=== PATIENT | male | born 1950 | race Caucasian/White ===

== ENCOUNTER 2017-09-27 07:51 | Day surgery (SDC) | payer OTHER, SELFPAY ==
--- NOTE | 2017-09-27 | IMM_PTH ---
PATIENT: SOPHIE ESPARZA LOC: [facility] [place] U#:[id number] AGE/SX: 67/M ROOM: RE09/27/[address]: Dr. Daniel Christian MD : 1950 BED: DIS: 09/27/2017 SPEC #: [id number] RECD: 10/03/17 10:09 STATUS: IAN ALDO #: [id number] JOSÉ MIGUEL: 09/27/17 00:[address]: Daniel Christian DEPT: IMMUNOHISTOCHEMISTRY RECD BY: Dara Najera ENTERED: 10/03/17 10:10 SP TYPE: IMMUNO OTHR DR: Dr. Gertrudis Rhoades MD Tissues: B - Nasal turbinate, NOS Procedures: p16 (initial) KI-67 (add) PHYSICIAN & INSTITUTION [place] [id number] SPECIMEN INFORMATION: Tissue Source: B - Turbinates Clinical Info: Hypertrophy of nasal turbinates Specimen Number: [id number] CPT code: 70773, 46433 METHODOLOGY: Deparaffinized sections of prefer/formalin-fixed tissue or PAP/DQ stained slides are incubated with monoclonal/polyclonal antibodies/oligonucleotide probes. Localization is made via biotin free immunoperoxidase method. Appropriate controls are performed and reacted as expected. Results on target cell population are indicated in the following table: RESULTS: ANTIBODY / CLONE RESULT P16 (E6H4) positive, focal and patchy Ki-67 (30-9) positive, low These tests were developed and their performance characteristics determined by [facility]. They may not have been cleared or approved by the U.S. Food and Drug Administration. The FDA has determined that such clearance or approval is not necessary. INTERPRETATION: Turbinates: Focal mild to moderate atypia/dysplasia. SJ:don 10/03/17 Case has been reviewed in consultation with Dr. Beard who concurs with the above diagnosis. IDC:AM
--- NOTE | 2017-09-27 | SEP_PTH ---
PATIENT: SOPHIE ESPARZA [place] [facility] [place][id number] AGE/SX: 67/M ROOM: RE09/27/[address]: Dr. Daniel Christian MD : 1950 BED: DIS: 09/27/2017 SPEC #: [id number] RECD: 09/27/17 14:19 STATUS: IAN ALDO #: [id number] JOSÉ MIGUEL: 09/27/17 00:[address]: Daniel Christian DEPT: SURGICAL PATHOLOGY RECD BY: Marcus Moreau ENTERED: 09/27/17 14:19 SP TYPE: SEPTUM OTHR DR: Dr. Gertrudis Rhoades MD Tissues: A - Nasal septum, NOS B - Nasal turbinate, NOS Procedures: Decalcification bone/plaque Surgery Specimen Level III Surgery Specimen Level IV HEADER OPERATION: Septoplasty, submucous resection inferior turbinate PRE-OP DIAGNOSIS: Deviated nasal septum, hypertrophy of nasal turbinates, incompetence of nasal valve TISSUE SUBMITTED: A ? Septal cartilage, B - Turbinates MICROSCOPIC DIAGNOSIS A. Septal cartilage: Pieces of bone and cartilage, clinically deviated nasal septum. B. Turbinates: Fragments of respiratory mucosa with squamous metaplasia and mild to moderate atypia/dysplasia. Mild chronic inflammation.. SJ:rg 10/02/17 COMMENT Immunohistochemistry (RF-151) for surrogate HPV marker (p16) supports the above diagnosis. Case has been reviewed in consultation with Dr. Beard who concurs with the above diagnosis. IDC:AM MICROSCOPIC DESCRIPTION Slides are reviewed. GROSS DESCRIPTION A - Received in fixative is one container labeled with the patient's name and designated septal cartilage. The specimen consists of multiple irregular fragments of pink-white bone and cartilage that in aggregate measure 3 x 3 x 0.2 cm. The specimen is totally submitted in one cassette after decalcification. B - Received in fixative is one container labeled with the patient's name and designated turbinates. The specimen is received in a suction bag device and consists of multiple irregular and foamy fragments of light flores soft tissue measuring in aggregate 1 x 0.7 x 0.1 cm. The specimen is totally submitted in one cassette. / AM:don 09/27/17 TC:3 CPT: 80615, 99380, 72273
--- NOTE | 2017-09-27 08:02 | EKG12_ITS ---
Test Reason : PRE OP Blood Pressure : / mmHG Vent. Rate : 064 BPM Atrial Rate : 064 BPM P-R Int : 168 ms QRS Dur : 098 ms QT Int : 408 ms P-R-T Axes : 028 -05 003 degrees QTc Int : 420 ms Normal sinus rhythm Low voltage QRS Borderline ECG Confirmed by STEVIE TATUM ([id number]), editor index FABIAN ERNANDEZ ([id number]) on 10/03/2017 12:08:53 PM Referred By: Daniel Christian Confirmed By:STEVIE TATUM
[2017-09-27 08:10] VITALS: BP 130/83; PULSE 62; RESP 16; TEMP 36.7; O2SAT 96; BMI 31.2
[2017-09-27 08:49] LABS: Anion Gap 9 (5-15); BUN 15 mg/dL (7-18); BUN/Creat Ratio 17.4 RATIO (10-20); Calcium,Total 8.5 mg/dL (8.5-10.1); Chloride 109 mmol/L (98-107); Creatinine, Serum 0.86 mg/dL (0.70-1.30); EST Glomerular Filtration Rate 94 mL/min (>60); Est Glom Filt Rate - Afr Amer 113 mL/min (>60); Estimated Creatinine Clearance 87.56 ml/min; Glucose 112 mg/dL (70-110); Potassium 4.3 mmol/L (3.5-5.1); Sodium Level 141 mmol/L (136-145)
[2017-09-27] MEDS: Lidocaine 4% 50 ML Bottle (10:19)
[2017-09-27] MEDS: Mupirocin Ointment 22gm Tube 1 APPLIC (10:54)
--- NOTE | 2017-09-27 11:00 | PCM.DC ---
You will use the following diet at home:: Regular Discharge Activity: Return to Normal Activity, May not drive while taking narcotic pain medications. Call your doctor if your incision/area has: Sudden Increased Bleeding Call your doctor if you observe: Fever of 101 or Higher, Uncontrolled pain Allergies/Adverse Reactions: Allergies No Known Allergies Allergy (Verified 09/25/17 11:35) Medications to take at Discharge Atorvastatin Calcium [Lipitor] 20 mg PO QHS 09/25/17 Primary Care Physician: Gertrudis Rhoades MD [Primary Care Provider] - Please Follow Up With: Daniel Christian MD When: 5 days
--- NOTE | 2017-09-27 11:10 | OP.PCM_ITS ---
Problem List (1) Deviated nasal septum Status: Chronic (2) Hypertrophy of nasal turbinates Status: Chronic Report of Operation Date of Procedure: 09/27/17 Pre-Operative Diagnosis: deviated nasal septum, inferior turbinate hypertrophy, nasal valve collapse Post-Operative Diagnosis: same Surgery/Procedure Performed:: septoplasty, submucous resection of bilateral inferior turbinates Description of Surgical Findings:: Marleen is a 67-year-old male presents for evaluation of chronic nasal obstruction. This is worse with inhalation. It is alleviated by use of Breathe Right strips with a positive Snyder maneuver noted in the office. Examination showed nasal septal deviation and hypertrophy of the inferior turbinates and although the primary cause of his obstruction was suspected nasal valve collapse he showed significant relief with topical topical oxymetazoline used suggesting treatment of the septal deviation and reduction inferior turbinates would provide for adequate relief and the above procedure was offered. The risks, alternatives, potential complications, and benefits were discussed at length and witnessed informed consent obtained in the office. Procedure went as follows: The patient was identified in the preoperative holding and brought to the operating room was placed under general anesthesia and intubated. When appropriate anesthesia was obtained, oxymetazoline and 4% topical lidocaine soaked pledgets were placed to decongest the nasal mucosa. Upon removal the anterior nasal septum and anterior inferior turbinates were injected with 1% lidocaine with 100,000 epinephrine for a total of 3 cc. After allowing for vasoconstriction, a hemitransfixion incision was then made in the left side of the sub-perichondrial periosteal flap and elevated along the nasal septum. There is noted to be some inferior scar tissue suggesting possible prior attempts at septoplasty but ongoing high nasal septal deviation. The cartilage was then placed transected at the bony cartilaginous junction and similar flap raised on the contralateral side. Using a Jhony forceps the superior deviated portion was then transected with the remainder of the bony deviation removed piecemeal with a Anahi forceps. This allowed for religious of midline nasal septal placement and the hemitransfixion incision was then closed with interrupted 4-0 chromic sutures followed by a 4-0 plain gut suture to approximate the mucosal flaps. This completed the septoplasty portion of the procedure. Attention was then turned to the submucous resection of the inferior turbinates. Beginning on the left side the anterior inferior turbinate was punctured with a 15 blade scalpel. Using a caudal elevator, a submucosal flap was then elevated along the length of the turbinate. Using the microdebrider the anterior bony portion and intervening soft tissue material was then removed reducing the inferior turbinate. Similar procedure then completed on the contralateral side. Medina splints coated with mupirocin ointment were then placed bilaterally and secured to the columella with a single 3-0 Prolene suture. An NG tube was then placed to decompress the stomach and the patient returned to anesthesia where he was revived and extubated without complication having tolerated the procedure well. Type of Anesthesia:: General Anesthesiologist: Paul Duarte Specimen's removed: septal and inferior turbinate tissue Drains: none Estimated Blood Loss (mL): 50 mL Fluids Replaced: 800 mL - Complications none - Admit VTE Documentation VTE Mechan Device Prophylaxis: SCD's VTE Pharm Prophylaxis ordered?: No
[2017-09-27 11:14] VITALS: BP 130/83; BP 131/87; PULSE 90; RESP 18; TEMP 36.6; O2SAT 92
[2017-09-27 11:30] VITALS: BP 130/83; BP 134/94; PULSE 79; RESP 18; O2SAT 93
[2017-09-27 11:45] VITALS: BP 130/83; BP 133/86; PULSE 74; RESP 18; O2SAT 93
[2017-09-27 12:00] VITALS: BP 130/83; BP 138/89; PULSE 78; RESP 18; TEMP 36.6; O2SAT 93
[2017-09-27 12:50] VITALS: BP 130/83
== END 2017-09-27 12:53 | disposition home or self-care (01) ==
LOC: SDC 07:52 → AC 07:54
PROVIDERS: Family Provider Family Medicine; PCP Family Medicine; Visit Provider Otolaryngology
PROC: (CPT 30520; principal; 2017-09-27 09:15)
DX: J34.2 Deviated nasal septum (principal); J34.3 Hypertrophy of nasal turbinates; M95.0 Acquired deformity of nose; E78.00 Pure hypercholesterolemia, unspecified; Z87.891 Personal history of nicotine dependence
CPT/HCPCS: 00160; 30140; 30520; 36415; 80048; 88304; 88305; 88311; 88341; 88342; 93005; J7120; J2405

== ENCOUNTER 2018-07-01 07:08 | Day surgery (SDC) | payer OTHER, SELFPAY ==
[2018-07-01] VITALS (10 sets, daily range): BP systolic 109–140; BP diastolic 75–90; PULSE 62–83; RESP 16; TEMP 36.2–37.2; O2SAT 66–97; BMI 30.9
--- NOTE | 2018-07-01 | COLBX_PTH ---
PATIENT: SOPHIE ESPARZA LOC: [place] U#:[id number] AGE/SX: 68/M ROOM: RE07/01/[address]: Dr. Raymond Horvath MD : 1950 BED: DIS: 07/01/2018 SPEC #: [id number] RECD: 07/01/18 11:10 STATUS: IAN ALDO #: [id number] JOSÉ MIGUEL: 07/01/18 00:[address]: Raymond Horvath DEPT: SURGICAL PATHOLOGY RECD BY: Marcus Moreau ENTERED: 07/01/18 11:10 SP TYPE: COLON BX OTHR DR: Dr. Danie Rivera MD Tissues: A - Ascending colon B - Rectum, NOS Procedures: Surgery Specimen Level IV HEADER OPERATION: Colonoscopy - open access (MOD) PRE-OP DIAGNOSIS: Screening TISSUE SUBMITTED: A - Polyp proximal ascending colon, B - Polyp rectum MICROSCOPIC DIAGNOSIS A. Polyp proximal ascending colon, biopsy: Tubular adenoma. Fragments of fecal material. B. Polyp rectum, biopsy: Tubular adenoma. Hyperplastic polyp. Fragments of fecal material. HERBERTH:don 07/02/18 MICROSCOPIC DESCRIPTION Slides are reviewed. GROSS DESCRIPTION A - Received in fixative is one container labeled with the patient's name and designated polyp proximal ascending. The specimen consists of multiple irregular fragments of light flores soft tissue that in aggregate measure 0.5 x 0.1 x 0.1 cm. The specimen is totally submitted in one cassette. B - Received in fixative is one container labeled with the patient's name and designated polyp rectum. The specimen consists of multiple irregular fragments of light flores soft tissue that in aggregate measure 0.8 x 0.4 x 0.2 cm. The specimen is totally submitted in one cassette. / HERBERTH:don 07/01/18 TC:1 CPT: 01587 x2
--- NOTE | 2018-07-01 08:22 | PCM.HP.STD ---
Problem List (1) Screening for intestinal cancer Status: Acute History of Present Illness Date of Admission: 07/01/18 The patient is a 68 year old M who presents via our open access program today. 5 years ago was his previous colonoscopy. Claims he had polyps then. On this occasion he has some mucus per rectum. He denies any personal history of colon cancer. No family history of colon cancer. He otherwise states that he enjoys good health. No abdominal pain. No unusual weight change. Past Medical History Past Medical History (Chronic Problems): Chronic Problems (Last Reviewed 06/23/18 @ 15:08 by Dorothy Christian) Hypertrophy of nasal turbinates (Chronic) Deviated nasal septum (Chronic) Allergies No Known Allergies Allergy (Verified 06/30/18 08:44) Home Medications: Ambulatory Orders Medication Instructions Recorded Atorvastatin Calcium [Lipitor] 20 mg PO QHS 09/25/17 Fluticasone 0.05% [Flonase Nasal 1 spray NASAL DAILY 06/30/18 Isabella] Multivitamin [Multiple Vitamins] 1 each PO DAILY 06/30/18 Terbinafine HCl 250 mg PO DAILY 06/30/18 Surgical History: Surgical History (Last Reviewed 06/23/18 @ 15:08 by Dorothy Christian) S/P surgery on nasal septum Z98.890 Smoking Status: Never smoker Tobacco Use: Non-smoker Review of Systems Constitutional: Denies: Anorexia Eyes: Denies: Blurred vision HEENT: Denies: Difficulty Swallowing Cardiovascular: Denies: Chest Pain Respiratory: Denies: Cough Gastrointestinal: Reports: - - Mucus per rectum. Denies: Abdominal Pain Genitourinary: Denies: Dysuria VTE Information - Inpt Only VTE Present on Admission: No Patient Problems: Active and Suspected Problems (Last Reviewed 06/23/18 @ 15:08 by Dorothy Christian) Screening for intestinal cancer (Acute) - Physical Exam General: Alert, Oriented x3, Cooperative, No apparent distress HEENT: Atraumatic Oral: Moist Mucosa Lungs: Clear to auscultation Cardiovascular: Regular rate, Regular Rhythm Abdomen: Bowel Sounds Present, Soft, Non Tender, Non-Distended Extremities: No Calf Tenderness Musculoskeletal: No Tenderness to Palpation of Joints or Extremities Neurological: Cranial nerves II-XII grossly intact Psych/Mental Status: Normal Affect Vital Signs Temp Pulse Resp BP Pulse Ox 97.7 F L 62 16 140/89 H 95 07/01/18 07:49 07/01/18 07:49 07/01/18 07:49 07/01/18 07:49 07/01/18 07:49 Oxygen Delivery Method Room Air Weight: 215 lb 13.321 oz Body Mass Index (BMI) 30.9 Assessment/Plan All Active Problems (Last Reviewed 06/23/18 @ 15:08 by Dorothy Christian) Screening for intestinal cancer (Acute) Acute left-sided low back pain (Acute) Segmental and somatic dysfunction of thoracic region (Acute) Segmental and somatic dysfunction of cervical region (Acute) Segmental and somatic dysfunction of lumbar region (Acute) Colonoscopy with possible biopsy or polypectomy secondary to personal history of colon polyps. Patient is aware the technique, benefits, risks, alternatives. He has had an opportunity to ask and have questions answered. He is proceeded with the MiraLAX bowel prep. We will proceed as noted. Raymond Horvath M.D., F.A.C.S.
--- NOTE | 2018-07-01 09:01 | OP.ENDO_ITS ---
Patient Name: Marleen Roman Procedure Date: 07/01/2018 8:25 AM Date of : 1950 Age: 68 Procedure: Colonoscopy Indications: High risk colon cancer surveillance: Personal history of colonic polyps Providers: Raymond Horvath MD Referring MD: Raymond Horvath MD Medicines: Midazolam 4 mg IV, Meperidine 100 mg IV Patient Profile: Last Colonoscopy: 5 years ago. Complications: No immediate complications. Procedure: Pre-Anesthesia Assessment: - Prior to the procedure, a History and Physical was performed, and patient medications and allergies were reviewed. The patient's tolerance of previous anesthesia was also reviewed. The risks and benefits of the procedure and the sedation options and risks were discussed with the patient. All questions were answered, and informed consent was obtained. Prior Anticoagulants: The patient has taken no previous anticoagulant or antiplatelet agents. ASA Grade Assessment: II - A patient with mild systemic disease. After reviewing the risks and benefits, the patient was deemed in satisfactory condition to undergo the procedure. After I obtained informed consent, the scope was passed under direct vision. Throughout the procedure, the patient's blood pressure, pulse, and oxygen saturations were monitored continuously. The pediatric colonoscope was introduced through the anus and advanced to the cecum, identified by appendiceal orifice and ileocecal valve. The colonoscopy was performed without difficulty. The patient tolerated the procedure well. The quality of the bowel preparation was good. The ileocecal valve was photographed. Moderate Sedation: Moderate (conscious) sedation was personally administered by the endoscopist. The following parameters were monitored: oxygen saturation, heart rate, blood pressure, and response to care. Total physician intraservice time was 15 minutes. Scope In: 8:38:40 AM Scope Withdrawal Time 0 hours 12 minutes 47 seconds Scope Out: 8:55:48 AM Total Procedure Duration Time 0 hours 17 minutes 8 seconds Findings: The digital rectal exam findings include non-thrombosed external hemorrhoids, non-thrombosed internal hemorrhoids and internal hemorrhoids that prolapse with straining, but spontaneously regress to the resting position (Grade II). Pertinent negatives include normal prostate (size, shape, and consistency). A 6 mm polyp was found in the proximal ascending colon. The polyp was sessile. The polyp was removed with a cold snare. Resection and retrieval were complete. A 5 mm polyp was found in the rectum. The polyp was sessile. The polyp was removed with a cold snare. Resection and retrieval were complete. Multiple diverticula were found in the sigmoid colon and descending colon. Impression: - Non-thrombosed external hemorrhoids, non-thrombosed internal hemorrhoids and internal hemorrhoids that prolapse with straining, but spontaneously regress to the resting position (Grade II) found on digital rectal exam. Posterior anal tag,soft. Mild escoriation anus. No active bleeding. - One 6 mm polyp in the proximal ascending colon, removed with a cold snare. Resected and retrieved. - One 5 mm polyp in the rectum, removed with a cold snare. Resected and retrieved. - Diverticulosis in the sigmoid colon and in the descending colon. Recommendation: - Discharge patient to home. - Resume previous diet. - Continue present medications. - Repeat colonoscopy in 5 years for surveillance. - Return to my office in 1 week. Procedure Code(s): --- Professional --- 69104, Colonoscopy, flexible; with removal of tumor(s), polyp(s), or other lesion(s) by snare technique 57293, 59, Moderate sedation services provided by the same physician or other qualified health career development associate performing the diagnostic or therapeutic service that the sedation supports, requiring the presence of an independent trained observer to assist in the monitoring of the patient's level of consciousness and physiological status; initial 15 minutes of intraservice time, patient age 5 years or older Diagnosis Code(s): --- Professional --- Z86.010, Personal history of colonic polyps K64.1, Second degree hemorrhoids K64.4, Residual hemorrhoidal skin tags D12.2, Benign neoplasm of ascending colon K62.1, Rectal polyp K57.30, Diverticulosis of large intestine without perforation or abscess without bleeding CPT copyright 2017 [employer]. All rights reserved. The codes documented in this report are preliminary and upon senior business development manager review may be revised to meet current compliance requirements. Raymond Horvath MD 07/01/2018 9:01:46 AM This report has been signed electronically. Number of Addenda: 0 Note Initiated On: 07/01/2018 8:25 AM
== END 2018-07-01 10:16 | disposition home or self-care (01) ==
LOC: EN 07:09 → AC 07:09
PROVIDERS: Family Provider Family Medicine; PCP Family Medicine; Referring Provider Surgery; Visit Provider Surgery
PROC: 0DJD8ZZ Inspection of Lower Intestinal Tract, Via Natural or Artificial Opening Endoscopic (ICD-10-PCS; CPT 45378; principal; 2018-07-01 08:10)
DX: Z12.11 Encounter for screening for malignant neoplasm of colon (principal); D12.2 Benign neoplasm of ascending colon; D12.8 Benign neoplasm of rectum; K64.1 Second degree hemorrhoids; K57.30 Diverticulosis of large intestine without perforation or abscess without bleeding; K64.4 Residual hemorrhoidal skin tags; Z86.010 Personal history of colon polyps
CPT/HCPCS: 45385; 88305; 99152; 99153; J7120

== ENCOUNTER 2018-07-30 13:30 | Outpatient (RCR) | payer OTHER, SELFPAY ==
--- NOTE | 2018-05-29 13:18 | MASS.EVAL_ITS ---
Massage Therapy Evaluation: Initial Evaluation Date: 05/27/2018 SUBJECTIVE: Marleen is a 68 year old male who was referred to the [facility] facility for a massotherapy evaluation by Dr. Rivera with the diagnosis of low back pain. Marleen presents today with the symptoms of tension and pain in his mid-low back. He also complains of neck tension. Marleen reports having a medical history chronic neck and upper back and lower back tension with a history of pain in his mid-low back back. He reports having the increased low back symptoms for a few weeks and that he feels some improvement with stretching activity modification. OBJECTIVE: Upon observation Marleen has poor posture in sitting and standing. After examination and palpation I found Marleen to have very high muscle tension with tenderness and myofascial restrictions in his sub occipitals, levator scapulae, trapezius, rhomboids, scalenes, and thoracic paraspinals. His QL?s, hips including glute medius and minimus, hamstrings all were very tight with fascial restrictions, tender points and trigger points. The first treatment consisted of a one hour massage to his full body with myofascial release, muscle stripping, trigger point compression techniques, and cervical manual traction. ASSESSMENT: I feel that Marleen is a good candidate for massotherapy at this time. He had a favorable response to the first treatment with reduction in his muscle aches, pain and tension. He also had improvement in his cervical flexibility and low back flexibility. PLAN: The plan of care was reviewed with the patient. The patient is to be seen on as needed basis for a total of ten sessions with the recommendation of once every two weeks for a one hour treatment.
--- NOTE | 2018-08-21 12:56 | DS.PCM_ITS ---
Massage Therapy Discharge Summary: Initial Evaluation: 05/27/18 Diagnosis: Low back pain No. of Visits: 3 of 10 Date of last visit: 07/30/2018 This patient is being discharged from our care at the [facility]. Thank you, Apoorva Glover LMT
== END 2018-07-30 19:00 | disposition home or self-care (01) ==
LOC: MASS 13:30
PROVIDERS: Family Provider Family Medicine; PCP Family Medicine; Visit Provider Family Medicine
DX: M54.5 Low back pain (principal)
CPT/HCPCS: 97124

== ENCOUNTER → 2018-09-10 14:02 | Outpatient (CLI) | payer MEDICARE, SELFPAY ==
[2018-07-30 14:38] VITALS: BMI 31.2
[2018-09-10 16:28] LABS: AST(SGOT) 29 U/L (15-37); Alanine Aminotransfer ALT/SGPT 59 U/L (16-61); Alkaline Phosphatase 82 U/L (45-117); Bilirubin, Direct 0.21 mg/dL (0.00-0.30); Globulin 3.1 g/dL (2.2-4.2); Protein, Total 7.1 g/dL (6.4-8.2)
== END ==
PROVIDERS: Family Provider Family Medicine; PCP Family Medicine; Visit Provider Family Medicine
DX: E78.5 Hyperlipidemia, unspecified (principal)
CPT/HCPCS: 36415; 80076

== ENCOUNTER → 2019-01-05 15:37 | Outpatient (CLI) | payer MEDICARE, SELFPAY ==
[2018-07-30 14:38] VITALS: BMI 31.2
--- NOTE | 2019-01-05 15:48 | CT_ITS ---
We are attempting to reach Gertrudis Rhoades MD to discuss findings. An addendum with communication details will be sent when the communication is complete. STUDY: CT SOFT TISSUE NECK WITH CONTRAST REASON FOR EXAM: Male, 68 years old. Right neck mass RADIATION DOSAGE (If Supplied By Facility): CTDIvol = ( ) mGy, DLP = ( ) mGycm TECHNIQUE: The patient was scanned in a multi-detector CT scanner. High resolution transaxial imaging was performed following intravenous administration of 75 IV Isovue 370. Sagittal and coronal images were reconstructed. Individualized dose optimization techniques were used for this CT. COMPARISON: None. FINDINGS: SUPRAHYOID HEAD AND NECK PEST CONTROLLER SPACE (INCLUDING SUPRAZYGOMATIC PORTION): Normal with no evidence of an accessory parotid lobe. No calcification in parotid duct. PARAPHARYNGEAL SPACE: Normal and symmetric. No evidence of asymmetric pterygoid plexus. RETROPHARYNGEAL SPACE: Normal with no enlarged nodes of Rouvier laterally CAROTID SPACE: Normal PERIVERTEBRAL SPACE: The prevertebral and paraspinal components are normal. PAROTID SPACE: Negative PHARYNGEAL MUCOSAL SPACE: The nasopharyngeal and oropharyngeal spaces including the tongue base are normal with no tonsillitis, adenoidal hypertrophy or any neoplastic processes. ORAL CAVITY : The mucosal surfaces including the anterior two thirds of the tongue and the submandibular and sublingual spaces are normal INFRAHYOID HEAD AND NECK: VISCERAL SPACE: The trachea, esophagus, larynx and hypopharynx are normal. A 1.2 cm area of low attenuation in the right lobe of the thyroid gland. THE CAROTID, RETROPHARYNGEAL, PERIVERTEBRAL and POSTERIOR CERVICAL SPACES (Containing The Spinal Accessory Lymph Nodes): Normal . ORBITS AND PARANASAL SINUSES: Negative CERVICAL LYMPH NODES: No left-sided neck adenopathy. Right sided neck adenopathy: Level 2A: 3.6 x 1.8 cm. Level 2B: 3.3 x 2.3 cm. Level 3:: 2.9 x 1.8 cm. Level 5A: 1.6 x 1.2 cm. Level 5B: 2.2 x [address]/Soft Tissue Neck WITH Contrast IMPRESSION: No left-sided cervical adenopathy. Multiple nonnecrotic enlarged lymph nodes matted together involving levels 2 and 3 and 5. A 1.2 cm area of low attenuation is in the right lobe of the thyroid gland. Follow-up with ultrasound suggested Electronically Signed: Paulo No MD at 1:29 EDT Tel , Service support ,
[2019-01-05 16:01] LABS: CREATININE FINGERSTICK 1.2 mg/dL (0.70-1.30); EGFR FINGERSTICK > 60.0000 mL/min (>60)
== END ==
PROVIDERS: Family Provider Family Medicine; PCP Family Medicine; Referring Provider Family Medicine; Visit Provider Family Medicine
DX: R22.1 Localized swelling, mass and lump, neck (principal)
CPT/HCPCS: 70491; Q9967

== ENCOUNTER 2019-01-16 12:35 | Day surgery (SDC) | payer MEDICARE, SELFPAY ==
[2018-07-30 14:38] VITALS: BMI 31.2
--- NOTE | 2019-01-16 | IMM_PTH ---
PATIENT: SOPHIE ESPARZA [place] [facility] [facility] [place][id number] AGE/SX: 68/M ROOM: RE01/16/[address]: Dr. Daniel Christian MD : 1950 BED: DIS: 01/16/2019 SPEC #: [id number] RECD: 01/20/19 13:18 STATUS: IAN REQ #: [id number] JOSÉ MIGUEL: 01/16/19 00:[address]: Daniel Christian DEPT: IMMUNOHISTOCHEMISTRY RECD BY: Dara Najera ENTERED: 01/20/19 13:21 SP TYPE: IMMUNO OTHR DR: Dr. Danie Rivera MD Tissues: Lymph node of neck, NOS Procedures: BCL-2 (add) BCL-6 (add) CD10 (add) CD138 (add) CD15 (add) CD20 (add) CD23 (add) CD3 (add) CD30 (add) CD43 (add) CD45 (add) CD5 (add) CD79A (add) CYCLIN (add) MUM1 (add) C-MYC (add) Pankeratin (initial) PHYSICIAN & [place] [id number] SPECIMEN INFORMATION: Tissue Source: Right cervical lymph node, biopsy Clinical Info: Cervical lymphadenopathy Specimen Number: [id number] #4 CPT code: 77900, 21052 x16 METHODOLOGY: Deparaffinized sections of prefer/formalin-fixed tissue or PAP/DQ stained slides are incubated with monoclonal/polyclonal antibodies/oligonucleotide probes. Localization is made via biotin free immunoperoxidase method. Appropriate controls are performed and reacted as expected. Results on target cell population are indicated in the following table: RESULTS: ANTIBODY / CLONE RESULT Block 4 AE1-3 (AE1/AE3/PCK26) negative CD3 (PS1) negative CD5 (SP10) negative CD10 (56C6) positive, focal RS cells CD15 (MMA) positive CD20 (L26) negative CD23 (1B12) negative CD30 (Phillip-H2) positive CD43 (L60) negative CD45 (RP2/18) negative CD79a (11E3) negative CD138 (B-A38) negative BCL-2 (bcl-2/100/D5) positive BCL-6 (YG958X/A8) negative Cyclin D1/BCL-1 (SP4) negative MUM1 (MRQ-43) positive, RS cells C-MYC (Y69) negative These tests were developed and their performance characteristics determined by [facility]. They may not have been cleared or approved by the U.S. Food and Drug Administration. The FDA has determined that such clearance or approval is not necessary. INTERPRETATION: Right cervical lymph node, biopsy: Hodgkin lymphoma, nodular sclerosing subtype. AM:don 01/29/19 Case has been reviewed in consultation with Dr. Mendieta who concurs with the above diagnosis. IDC:CE
--- NOTE | 2019-01-16 | AXNB_PTH ---
PATIENT: SOPHIE ESPARZA [place] [facility] [place][id number] AGE/SX: 68/M ROOM: RE01/16/[address]: Dr. Daniel Christian MD : 1950 BED: DIS: 01/16/2019 SPEC #: [id number] RECD: 01/16/19 15:22 STATUS: IAN ALDO #: [id number] JOSÉ MIGUEL: 01/16/19 00:[address]: Daniel Christian DEPT: SURGICAL PATHOLOGY RECD BY: Dara Najera ENTERED: 01/16/19 16:11 SP TYPE: AX NODE BX OTHR DR: Dr. Danie Rivera MD Tissues: A - Lymph node of neck, NOS Procedures: Frozen Section (charge) Surgery Specimen Level IV HEADER OPERATION: Radical neck biopsy/excision lymph nodes - open deep cervical nodes - right PRE-OP DIAGNOSIS: Cervical lymphadenopathy; dysphagia TISSUE SUBMITTED: Right cervical lymph node tissue for FS at 1519 FROZEN SECTION DIAGNOSIS Right cervical lymph node, biopsy: Consistent with lymphoproliferative disorder. AM:don 01/16/19 MICROSCOPIC DIAGNOSIS Right cervical lymph node, excisional biopsy: Consistent with Hodgkin's lymphoma, nodular sclerosing sub type.. See comment. AM:don 01/20/19 COMMENT Immunohistochemistry ([id number]) and flow cytometry analysis performed at [facility] supports the above diagnosis. This case is reviewed in consultation by of Frolik who concurs with the diagnosis. Complete report viewable in EMR. Case has been reviewed in consultation with Dr. Mendieta who concurs with the above diagnosis. IDC:CE MICROSCOPIC DESCRIPTION Slides are reviewed. GROSS DESCRIPTION Received fresh for frozen section consultation labeled with the patient's name is a specimen designated right cervical lymph node tissue. The specimen consists of an ovoid fragment of light flores soft tissue measuring 4 x 2.5 x 2.2 cm. Willow Worker sections are submitted for flow cytometric analysis. Additional client relations representative sections are submitted in four cassettes. / AM:don 01/19/19 TC:0 CPT: 65426, 83395
--- NOTE | 2019-01-16 12:49 | EKG12_ITS ---
Test Reason : PREOP Blood Pressure : / mmHG Vent. Rate : 076 BPM Atrial Rate : 076 BPM P-R Int : 158 ms QRS Dur : 098 ms QT Int : 404 ms P-R-T Axes : 021 -11 -04 degrees QTc Int : 454 ms Sinus rhythm with occasional Premature ventricular complexes and Fusion complexes Otherwise normal ECG When compared with ECG of 27-SEP-2017 08:12, Fusion complexes are now Present Premature ventricular complexes are now Present Confirmed by NIKKI DE LA TORRE, GARRET ([id number]), assistant production editor JACOBO GONCALVES ([id number]) on 01/20/2019 11:30:10 AM Referred By: Daniel Christian Confirmed By:GARRET JORDAN MD
[2019-01-16 13:08] VITALS: BP 125/87; PULSE 74; RESP 18; TEMP 37.1; O2SAT 95; BMI 29.5
[2019-01-16 13:33] LABS: Anion Gap 7 (5-15); BUN 16 mg/dL (7-18); BUN/Creat Ratio 17.1 RATIO (10-20); Calcium,Total 8.7 mg/dL (8.5-10.1); Chloride 106 mmol/L (98-107); Creatinine, Serum 0.93 mg/dL (0.70-1.30); EST Glomerular Filtration Rate 85 mL/min (>60); Est Glom Filt Rate - Afr Amer 103 mL/min (>60); Estimated Creatinine Clearance 79.84 ml/min; Glucose 95 mg/dL (74-106); Sodium Level 138 mmol/L (136-145)
--- NOTE | 2019-01-16 15:25 | PCM.OPRPT ---
Problem List (1) Anterior cervical adenopathy Status: Acute Report of Operation Date of Procedure: 01/16/19 Pre-Operative Diagnosis: Right cervical lymphadenopathy Post-Operative Diagnosis: Same Surgery/Procedure Performed:: Deep cervical lymph node biopsy right neck Description of Surgical Findings:: Gabriela is a 68-year-old male presents valuation of acute onset of diffuse massive right-sided lymphadenopathy with both anterior and posterior nodes noted. Examination showed no obvious site of head neck malignancy to suggest metastatic disease and given consideration of this presentation because of the lymphoma and open biopsy was advised for further evaluation. The risks, alternatives, potential complications, and benefits were discussed at length and any questions answered to the patient and/or caregiver's satisfaction. Witnessed informed consent was obtained in the office, and the patient and/or caregiver was agreeable to proceed. Procedure went as follows: The patient was identified in the preoperative holding and brought to the operating room was placed under general anesthesia intubated. When appropriate anesthesia obtained, the right neck was then prepped and draped in usual sterile fashion. The planned skin incision was then injected with 1% lidocaine with 100,000 epinephrine for a total of 3 cc. Using a 15 blade scalpel, an incision was then made just anterior to the sternocleidomastoid to finger breaths below the angle of the mandible through the skin and subcutaneous tissues. The platysma was then transected. Blunt dissection was then carried out along the jugular lymph node chain were massive lymphadenopathy was encountered and a account maintenance representative 3 x 2 x 2 cm lymph node was then removed as specimen. This was then sent for pathologic evaluation. The wound was then irrigated saline solution and closed deeply with interrupted 3-0 Vicryl sutures to close the space. The platysma and subcutaneous tissues were then reapproximated similarly. Finally a running 5-0 Monocryl in a running baseball suture was then applied to the skin. The patient was then returned to anesthesia having tolerated the procedure well without complication. Type of Anesthesia:: General Anesthesiologist: Nic Barillas Special Medications: none Specimen's removed: right deep cervical lymph node Drains: none Estimated Blood Loss (mL): 0 mL Fluids Replaced: 1000 mL Grafts/Implants Used: none - Complications none - Admit VTE Documentation VTE Present on Admission: No VTE Mechan Device Prophylaxis: SCD's VTE Pharm Prophylaxis ordered?: No
[2019-01-16] MEDS: Bacitracin 500 UNITS/GM PACKET (15:29)
--- NOTE | 2019-01-16 15:33 | DCINST_ITS ---
- Discharge Diagnoses Current Active Problems: Current Active and Chronic Problems (Last Reviewed 06/23/18 @ 15:08 by Dorothy Christian) Anterior cervical adenopathy (Acute) You will use the following diet at home:: Regular Discharge Activity: Return to Normal Activity Call your doctor if your incision/area has: Increased Pain/ Swelling, Foul Smelling Discharge Call your doctor if you observe: Fever of 101 or Higher, Uncontrolled pain Allergies/Adverse Reactions: Allergies No Known Allergies Allergy (Verified 01/15/19 13:59) Medications to take at Discharge Fluticasone 0.05% [Flonase Nasal [place]] 1 spray NASAL DAILY PRN 06/30/18 Multivitamin [Multiple Vitamins] 1 each PO DAILY 06/30/18 Primary Care Physician: Huy Rivera MD [Primary Care Provider] - Test Results: Test results from this visit will be discussed in further detail at your follow- up appointment, if applicable. Please Follow Up With: Daniel Christian MD When: 2 weeks
[2019-01-16 15:55] VITALS: BP 125/87; BP 145/93; PULSE 93; RESP 18; TEMP 37; O2SAT 92
[2019-01-16 16:00] VITALS: BP 125/87; BP 145/91; PULSE 87; RESP 18; O2SAT 92
[2019-01-16 16:15] VITALS: BP 125/87; BP 143/95; PULSE 80; RESP 18; O2SAT 92
[2019-01-16 16:19] VITALS: BP 125/87; BP 145/84; PULSE 86; RESP 16; TEMP 36.6; O2SAT 92
[2019-01-16] MEDS: Acetaminophen 325 MG Tablet 650 MG PO (16:37)
[2019-01-16 16:38] VITALS: BP 125/87; BP 157/94; PULSE 84; RESP 18; TEMP 36.7
== END 2019-01-16 16:52 | disposition home or self-care (01) ==
LOC: SDC 12:37 → AC 12:44
PROVIDERS: Family Provider Family Medicine; PCP Family Medicine; Referring Provider Otolaryngology; Visit Provider Otolaryngology
PROC: 07T10ZZ Resection of Right Neck Lymphatic, Open Approach (ICD-10-PCS; CPT 38724; principal; 2019-01-16 13:50)
DX: C81.91 Hodgkin lymphoma, unspecified, lymph nodes of head, face, and neck (principal); R13.10 Dysphagia, unspecified; R53.81 Other malaise; E78.00 Pure hypercholesterolemia, unspecified; Z87.891 Personal history of nicotine dependence
CPT/HCPCS: 00320; 38510; 36415; 80048; 88305; 88331; 88341; 88342; 93005; J7120; J2405

== ENCOUNTER → 2019-02-03 13:17 | Outpatient (CLI) | payer MEDICARE, SELFPAY ==
[2019-01-29 12:01] VITALS: BMI 30.3
[2019-02-02 15:23] VITALS: BMI 30.3
--- NOTE | 2019-02-03 14:47 | ECHODONC_ITS ---
Reason For Study: PRECHEMO STUDY Procedure This was a 2D Doppler, Color Flow transthoracic echocardiogram. Myocardial strain analysis was performed in this exam to aid in the assessment of cardiac function. The study was technically difficult. Exam performed in department. Left Ventricle Normal LV size. Apical false tendon noted. Left ventricular systolic function is normal. The estimated ejection fraction is 65 %. The global longitudinal strain = -22 % (normal). Diastolic function is indeterminate. No regional wall motion abnormalities noted. Right Ventricle Normal RV size. Normal systolic function. Atria The left atrium is mildly enlarged. Normal right atrium. No doppler evidence for ASD. Mitral Valve There is no mitral annular calcification. Mild focal mitral valve calcification of the anterior leaflet. Mild (1+) mitral valve insufficiency. Tricuspid Valve Normal tricuspid valve. Mild tricuspid valve insufficiency. Right ventricular systolic pressure estimated to be 36 mmHg. Aortic Valve Trisinus/trileaflet aortic valve. Normal aortic valve. Pulmonic Valve The pulmonic valve is not well visualized. Mild (1+) pulmonic valve insufficiency. Great Vessels Normal sized aortic root. Pericardium/Pleural No pericardial effusion. MMode/2D Measurements & Calculations LVIDd: 5.0 cm IVSd: 0.95 cm Ao root diam: 3.4 cm LVIDs: 2.9 cm LVPWd: 1.0 cm RVDd: 4.2 cm FS: 43.3 % LAV(MOD-bp): 68.3 ml LA A4 area: 23.6 cm2 LA dimension(2D): 5.3 cm LAV(MOD-bp) Indexed: 31.8 ml/m2 LAV(MOD-sp2): 60.0 ml LAV(MOD-sp4): 76.4 ml RA A4 area: 18.5 cm2 Time Measurements MV dec time: 0.19 sec Doppler Measurements & Calculations MV E max lukas: 65.2 cm/sec Lat Peak E' Lukas: 10.7 cm/sec Med Peak E' Lukas: 6.0 cm/sec MV A max lukas: 81.2 cm/sec E/E' lat: 6.1 E/E' med: 10.8 MV E/A: 0.80 Ao V2 max: 165.5 cm/sec LV V1 max: 114.6 cm/sec PA V2 max: 119.0 cm/sec Ao max P.0 mmHg LV V1 max P.3 mmHg PI end-d lukas: 133.4 cm/sec TR max lukas: 286.0 cm/sec TR max P.8 mmHg Interpretation Summary Left ventricular systolic function is normal. The estimated ejection fraction is 65 %. The global longitudinal strain = -22 % (normal). Apical false tendon noted. The left atrium is mildly enlarged. Mild focal mitral valve calcification of the anterior leaflet. Mild (1+) mitral valve insufficiency. Mild tricuspid valve insufficiency. Mild (1+) pulmonic valve insufficiency. Right ventricular systolic pressure estimated to be 36 mmHg. Diastolic function is indeterminate. Ordering Physician: Bassem Powell Referring Physician: Danie Rivera Performed By: Nupur Meza, LETHA, RVT
== END ==
PROVIDERS: Family Provider Family Medicine; PCP Family Medicine; Referring Provider Internal Medicine Hematology & Oncology; Visit Provider Internal Medicine Hematology & Oncology
DX: Z01.810 Encounter for preprocedural cardiovascular examination (principal); Z01.818 Encounter for other preprocedural examination; C81.90 Hodgkin lymphoma, unspecified, unspecified site; M99.01 Segmental and somatic dysfunction of cervical region; M99.02 Segmental and somatic dysfunction of thoracic region; M99.03 Segmental and somatic dysfunction of lumbar region
CPT/HCPCS: 0399T; 93306

== ENCOUNTER 2019-02-04 06:42 | Day surgery (SDC) | payer MEDICARE, SELFPAY ==
[2019-01-29 12:01] VITALS: BMI 30.3
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
[2019-02-02 15:23] VITALS: BMI 30.3
--- NOTE | 2019-02-03 10:00 | RAD_ITS ---
STUDY: X-RAY - ORBITS REASON FOR EXAM: Male, 68 years old. This study is being performed as a clearance examination for exclusion of orbital metal, prior to the performance of an MRI examination. TECHNIQUE: 2 view(s) of the orbits were obtained. COMPARISON: None. FINDINGS: Normal bilateral orbits without a metallic orbital foreign body. Normal visualized facial bones. Normal paranasal sinuses. The soft tissue structures are unremarkable. RAD/Orbits for Foreign Body IMPRESSION: No demonstrated metallic orbital foreign body. The patient is cleared for an MRI examination. Electronically Signed: Hudson Garibay, at 13:53 EDT , Service support ,
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
--- NOTE | 2019-02-04 06:43 | MRI_ITS ---
STUDY: MRI BRAIN WITH AND WITHOUT CONTRAST REASON FOR EXAM: Male, 68 years old. Headaches. Lymphoma. TECHNIQUE: Standardized multiplanar fat and water weighted pulse sequences were obtained. 19 IV Dotarem was administered for the contrast portion of the examination. COMPARISON: CT neck 01/05/2019. FINDINGS: Normal size of the ventricles and extra-axial spaces for the patient's age. Normal white matter tracts of the supratentorial brain. Normal bilateral basal ganglia. Normal thalami. There is no extra-axial fluid accumulation. Normal flow voids within the major intracranial circulation suggesting patency by spin echo criteria. Normal venous enhancement. There is no enhancing intra-axial or extra-axial abnormality. Normal sella turcica, pituitary gland, infundibular stalk, optic chiasm and hypothalamus. Normal tectal plate and pineal gland. Normal midbrain, kong and medulla. Normal cerebellum. Normal basal cisterns. Normal bilateral temporal bones. Normal bilateral internal auditory canals. No demonstrated orbital abnormality, within the constraints of a routine brain study. Normal visualized paranasal sinuses. Normal calvarium and skull base. Normal visualized soft tissue structures. Normal visualized upper cervical spine. Partially visualized is restricted diffusion associated with the bulky right level 2 cervical adenopathy consistent with known lymphoma. MRI/Brain W/WO Contrast IMPRESSION: Normal unenhanced and enhanced MRI of the brain. Partially visualized is restricted diffusion associated with the bulky right level 2 cervical adenopathy consistent with known lymphoma. Electronically Signed: Wilbur Weldon, at 12:26 EDT Tel , Service support ,
[2019-02-04 12:39] VITALS: BP 113/73; PULSE 62; RESP 16; TEMP 36.9; O2SAT 96; BMI 29.9
[2019-02-04] MEDS: Cefazolin 2 GM in 0.9% Normal Saline 100 ML IV (14:33)
--- NOTE | 2019-02-04 14:43 | RAD_ITS ---
STUDY: X-RAY CHEST REASON FOR EXAM: Male, 68 years old. Port placement TECHNIQUE: Single AP portable view of the chest. COMPARISON: None. FINDINGS: There is a left-sided Hsdwsd-t-Vdme with its tip overlying the cavoatrial junction. There are low lung volumes. The lungs are clear and expanded. There is no demonstrated pleural abnormality. Evaluation of the cardiac silhouette is limited on this view. Normal mediastinum and sebas. Normal visualized pulmonary arteries. Normal visualized aortic arch and descending thoracic aorta. Normal visualized thoracic spine. Normal visualized ribs, clavicles, and shoulders. There is no demonstrated abnormality of the visualized soft tissue structures of the upper abdomen. RAD/CXR for Line Placement IMPRESSION: Left-sided Uanwcm-s-Dpaf with its tip overlying the cavoatrial junction. No pneumothorax. Electronically Signed: Wilbur Weldon, at 16:17 EDT Tel , Service support ,
--- NOTE | 2019-02-04 14:46 | DCINST_ITS ---
Discharge Diet: No Restrictions - Pain medication may cause nausea. You should typically eat light foods as you take your pain medication. Discharge Activity: Return to Normal Activity, May Shower - Leave the bandage on for 2-3 days. When you remove the bandage, leave the steri-strips intact until they fall off. Additional Dressing/Incision Instructions:: Leave the bandage on for 2-3 days. When you remove the bandage, leave the steri-strips intact until they fall off. Allergies/Adverse Reactions: Allergies No Known Allergies Allergy (Verified 02/03/19 09:37) Medications to take at Discharge Fluticasone 0.05% [Flonase Nasal [place]] 1 spray NASAL DAILY PRN 06/30/18 Multivitamin [Multiple Vitamins] 1 ea PO DAILY 06/30/18 Ibuprofen [Advil] 400 mg PO UD PRN 01/29/19 Hydrocodone Bitart/Apap 5-325 [[place] 5MG-325MG] 1 tablet PO Q4H PRN PRN 2 Days #5 tablet 02/04/19 The following prescriptions were given: Hydrocodone Bitart/Apap 5-325 [[place] 5MG-325MG] 1 tablet PO Q4H PRN PRN 2 Days #5 tablet PRN Reason: Pain Primary Care Physician: Huy Rivera MD [Primary Care Provider] - Test Results: Test results from this visit will be discussed in further detail at your follow- up appointment, if applicable. Please Follow Up With: Raymond Horvath MD - [phone] When: Please contact the office if you have any difficulties
[2019-02-04] MEDS: Bupivacaine Mpf 0.5% 30 ML VIAL (14:53)
--- NOTE | 2019-02-04 15:32 | OP.PCM_ITS ---
Problem List (1) Hodgkins lymphoma Status: Acute Qualifiers: Hodgkin lymphoma type: unspecified type Report of Operation Date of Procedure: 02/04/19 Pre-Operative Diagnosis: Hodgkin's lymphoma Post-Operative Diagnosis: Same Surgery/Procedure Performed:: Left internal jugular 6 [place] power port placement. Reference #[id number]. Lot number [id number] expiry date 01/31/2020 Description of Surgical Findings:: Timeout and informed consent was obtained. 68-year-old gentleman was taken out from placement table underwent monitored anesthesia care. Ancef 2 g given intravenous preoperatively. The left neck and chest were sterilely prepped draped. Under ultrasound guidance the left internal jugular vein was identified 1% lidocaine mixed 50-50 with 0.5% Marcaine was used as a local anesthetic. A total of 16 cc was used. Under ultrasound guidance local was instilled. Micropuncture needle was inserted. Micropuncture wire inserted. Local was then instilled down upon the chest wall. Mid clavicular line second intercostal space transverse incision was created sharp and blunt dissection was used to create a subcutaneous port. Hemostasis obtained electrocautery. The tubing was tunneled from the chest to the neck site. Then sheath dilator was placed over the micropuncture wire the dilator wire removed and the J-wire was advanced but it got hung up at the SVC atrial junction. So then I had exchanged out for an 035 angled Glidewire with manipulation was able to get that to go down into the right heart. I then put the sheath dilator over that. I remove the dilator and the wire. I can advance the catheter through the sheath but the catheter would not take the correct position so I then placed the 035 angled Glidewire through the catheter in the mid mutation was able to advance the Glidewire and then eventually the guide catheter over the wire into the right atrium. Fluoroscopy help me confirm positioning. I then aspirated it aspirated easily. I amputated it to length. I connected to the port and secured it with a port attachment device. The port was placed in the pocket and secured there with 2-0 silk. The port site was closed with interrupted 3-0 Vicryl subdermal stitches. The neck was closed with interrupted 5-0 Vicryl. Steri-Strips Telfa and OpSite dressings applied. Sponge and instrument and needle counts were reported the surgeon be correct. Blood loss was minimal. He tolerated the procedure well and was taken to the recovery area in satisfactory condition without apparent complication. Specimens none. Drains none. Blood loss minimal. Raymond Horvath M.D., F.A.C.S. Type of Anesthesia:: Local MAC Anesthesiologist: Shakeel Mejia
[2019-02-04 15:38] VITALS: BP 113/73; BP 118/80; PULSE 66; RESP 16; TEMP 36.2; O2SAT 95
[2019-02-04 15:43] VITALS: BP 113/73; BP 128/82; PULSE 66; RESP 16; O2SAT 95
[2019-02-04 15:48] VITALS: BP 113/73; BP 121/93; PULSE 62; RESP 16; O2SAT 92
[2019-02-04 15:53] VITALS: BP 113/73; BP 130/80; PULSE 70; RESP 16; TEMP 36.2; O2SAT 97
[2019-02-04 16:50] VITALS: BP 113/73
== END 2019-02-04 16:55 | disposition home or self-care (01) ==
LOC: SDC 08:32 → AC 11:58
PROVIDERS: Family Provider Family Medicine; PCP Family Medicine; Referring Provider Surgery; Visit Provider Surgery
PROC: (CPT 36561; principal; 2019-02-04 13:45)
DX: Z45.2 Encounter for adjustment and management of vascular access device (principal); C81.11 Nodular sclerosis Hodgkin lymphoma, lymph nodes of head, face, and neck; E78.00 Pure hypercholesterolemia, unspecified; H91.90 Unspecified hearing loss, unspecified ear; Z79.899 Other long term (current) drug therapy
CPT/HCPCS: 00532; 36561; 76937; 77001; 70030; 70553; 71045; 76000; A9575; J7120; C1769

== ENCOUNTER → 2019-02-09 09:56 | Outpatient (CLI) | payer MEDICARE, SELFPAY ==
[2019-01-29 12:01] VITALS: BMI 30.3
[2019-02-05 10:57] VITALS: BMI 30.3
--- NOTE | 2019-02-09 14:31 | PFTCOMP ---
COMPLETE PULMONARY FUNCTION TEST INTERPRETATION Brief HPI: Patient is a 68 year old male, currently under the care of Dr. Powell, who presents to [facility] for complete pulmonary function tests secondary to diagnosis of pre chemo. Respiratory therapist reports good effort and reproducible results. Interpretation: Forced expiration spirometry shows no large airways obstructive ventilatory defect with an FEV1 of 81% predicted. There is no significant bronchodilator response by strict ATS criteria. Spirograms are of good quality and plateau normally. The respiratory flow volume loop shows a normal pattern. Lung volumes by body plethysmography show a normal total lung capacity at 5.9 L, 89% predicted. All other lung volumes are within normal limits. Diffusion capacity by carbon monoxide is normal at 90% predicted. The airway resistance is normal. No previous pulmonary function tests were available for review. Impression: These pulmonary function tests are within normal limits.
== END ==
PROVIDERS: Family Provider Family Medicine; PCP Family Medicine; Referring Provider Internal Medicine Hematology & Oncology; Visit Provider Internal Medicine Hematology & Oncology
DX: Z01.818 Encounter for other preprocedural examination (principal); C81.90 Hodgkin lymphoma, unspecified, unspecified site; M99.01 Segmental and somatic dysfunction of cervical region; M99.02 Segmental and somatic dysfunction of thoracic region; M99.03 Segmental and somatic dysfunction of lumbar region
CPT/HCPCS: 78815; 94060; 94726; 94729; A9552

== ENCOUNTER → 2019-03-02 09:22 | Outpatient (CLI) | payer MEDICARE, SELFPAY ==
[2019-02-11 14:11] VITALS: BMI 29.9
[2019-02-24 09:41] VITALS: BMI 30.3
--- NOTE | 2019-03-02 09:23 | MRI_ITS ---
STUDY: MRI LUMBAR SPINE WITH AND WITHOUT CONTRAST REASON FOR EXAM: Male, 68 years old. Hodgkin's lymphoma, low back pain TECHNIQUE: Standardized fat and water weighted pulse sequences were obtained in the sagittal and axial planes. 19 IV Dotarem was administered for the contrast portion of the examination. COMPARISON: PET CT 02/09/2019 FINDINGS: There is a 8 mm, ill-defined T1 hypointense lesion in the anterior L4 vertebral body which demonstrates contrast enhancement and STIR hyperintensity. This corresponds to the focal hypermetabolic lesion on recent PET/CT. T12-L1: Normal endplates. Normal disc height, hydration and morphology. Normal bilateral facet joints. Normal central canal and bilateral lateral recesses. Normal bilateral intervertebral neural foramina. Normal lumbar lordosis. There is no substantial scoliosis. Normal conus medullaris that terminates at the L1-2: Normal endplates. Normal disc height, hydration and morphology. Normal bilateral facet joints. Normal central canal and bilateral lateral recesses. Normal bilateral intervertebral neural foramina. L2-3: Normal endplates. Normal disc height, hydration and morphology. Normal bilateral facet joints. Normal central canal and bilateral lateral recesses. Normal bilateral intervertebral neural foramina. L3-4: Normal endplates. Mild annular disc bulge. Normal bilateral facet joints. Normal central canal and bilateral lateral recesses. Normal bilateral intervertebral neural foramina. L4-5: Normal endplates. Normal disc height, hydration and morphology. There is moderate bilateral facet arthrosis and ligamentum flavum hypertrophy. Normal central canal and bilateral lateral recesses. Normal bilateral intervertebral neural foramina. L5-S1: Normal endplates. Normal disc height, hydration and morphology. Normal bilateral facet joints. Normal central canal and bilateral lateral recesses. Normal bilateral intervertebral neural foramina. Normal visualized sacral ala. Small hemangioma in the right sacrum. Normal visualized paraspinous soft tissue structures. There are left renal parapelvic cysts. There is a T2 hypointense, T1 isointense nonenhancing left renal lesion measuring 1.9 x 1.4 cm felt to represent hemorrhagic cyst. MRI/Spine Lumbar W/WO Contrast IMPRESSION: 8 mm L4 vertebral body enhancing lesion corresponds to the focal hypermetabolic lesion on recent PET/CT, consistent with osseous metastasis. Mild degenerative changes. Left renal hemorrhagic cyst. Electronically Signed: Wilbur Weldon, at 15:38 EDT Tel , Service support ,
== END ==
PROVIDERS: Family Provider Family Medicine; PCP Family Medicine; Referring Provider Internal Medicine Hematology & Oncology; Visit Provider Internal Medicine Hematology & Oncology
DX: C81.90 Hodgkin lymphoma, unspecified, unspecified site (principal); M99.03 Segmental and somatic dysfunction of lumbar region
CPT/HCPCS: 72158; A9575

== ENCOUNTER → 2019-08-13 07:41 | Outpatient (CLI) | payer MEDICARE, SELFPAY ==
[2019-07-09 08:45] VITALS: BMI 29.7
[2019-07-23 14:35] VITALS: BMI 29.0
--- NOTE | 2019-08-13 07:45 | CT_ITS ---
STUDY: CT CHEST WITH CONTRAST REASON FOR EXAM: Male, 69 years old. History of Hodgkin''s disease treated with chemotherapy. RADIATION DOSAGE (If Supplied By Facility): CTDIvol = ( 20.96 ) mGy, DLP = ( 2559.25 ) mGycm TECHNIQUE: Transaxial imaging was performed following intravenous administration of IV 100mL Isovue-370. Multiplanar coronal and sagittal images were reformatted. Individualized dose optimization techniques were used for this CT. COMPARISON: None. FINDINGS: The previously seen right supraclavicular lymph nodes are markedly decreased in size. Small retrocrural lymph nodes on the left side. The largest measures 1 cm. Mild degree of increased markings at the lung bases suggestive of bibasilar atelectasis and/or possible scarring. There is no demonstrated pleural abnormality. Normal heart and pericardium. Normal mediastinum. Normal hilar regions. Normal enhanced pulmonary arteries. Normal aorta arch and descending thoracic aorta. There are multi-level degenerative changes of the thoracic spine. Increased kyphosis. There is no demonstrated abnormality of the visualized upper abdomen. CT/Chest WITH Contrast IMPRESSION: Findings suggest mild scarring and/or linear atelectasis at the lung bases. Electronically Signed: Hudosn Garibay, at 14:45 EST , Service support ,
--- NOTE | 2019-08-13 07:45 | CT_ITS ---
STUDY: CT ABDOMEN AND PELVIS WITH CONTRAST REASON FOR EXAM: Male, 69 years old. Patient has a history of Hodgkin''s lymphoma treated with chemotherapy. RADIATION DOSAGE (If Supplied By Facility): CTDIvol = ( 20.96 ) mGy, DLP = ( 2559.25 ) mGycm TECHNIQUE: Transaxial images were obtained from the dome of the diaphragm to the symphysis pubis without oral contrast. 100ML ISOVUE 370 was administered. Sagittal and coronal images were reconstructed. Individualized dose optimization techniques were used for this CT. COMPARISON: None. FINDINGS: Mild increased markings at the lung bases suggestive of bibasilar dependent atelectasis and/or scarring. Coronary artery calcification. There is decreased attenuation of the liver consistent with steatosis. Normal gallbladder and extrahepatic biliary system. Normal spleen. Normal pancreas. Normal bilateral adrenal glands. Normal right kidney. 1.4 cm cyst in the posterior aspect of the left kidney. Normal visualized stomach. Normal small intestine. Normal colon. The appendix is visualized and appears normal. There is diffuse atherosclerotic calcification of the abdominal aorta and its major visceral branches, without a demonstrated aneurysm. Normal inferior vena cava. Normal retroperitoneum. Normal urinary bladder. There is a right-sided inguinal hernia containing adipose tissue. Small umbilical hernia containing fat. There are mild degenerative changes of the visualized lumbar spine. CT/Abdomen/Pelvis W IV Cont ONLY IMPRESSION: Fatty infiltration of the liver. Small umbilical hernia containing fat as well as a right inguinal hernia containing fat. Small left renal cyst. Electronically Signed: Hudson Garibay, at 14:40 EST , Service support ,
--- NOTE | 2019-08-13 07:45 | CT_ITS ---
STUDY: CT SOFT TISSUE NECK WITH CONTRAST REASON FOR EXAM: Male, 69 years old. Follow-up for Hodgkin''s lymphoma. Chemotherapy. RADIATION DOSAGE (If Supplied By Facility): CTDIvol = ( 20.96 ) mGy, DLP = ( 2559.25 ) mGycm TECHNIQUE: The patient was scanned in a multi-detector CT scanner. High resolution transaxial imaging was performed following intravenous administration of IV 100mL Isovue-370. Sagittal and coronal images were reconstructed. Individualized dose optimization techniques were used for this CT. COMPARISON: Comparison is made with prior examination dated January 05, 2019. FINDINGS: Normal bilateral parotid glands. Normal bilateral tread builder spaces. Normal bilateral parapharyngeal spaces. Normal bilateral carotid spaces. Normal bilateral sublingual and submandibular glands and spaces. Normal visualized nasopharynx. Normal retropharyngeal space. Normal perivertebral space. Normal visualized bilateral faucial tonsils. The visualized tongue, tongue base and oropharynx are normal. Since prior study, there is been a marked improvement in the decrease in size and number of the right cervical lymphadenopathy. The largest lymph node presently measures 1.6 cm by 1.2 cm. This lies deep and posterior to the right sternocleidomastoid mastoid muscle. Small lymph nodes are seen in the right supraclavicular region. These have decreased in size as compared to prior study as well. There is no demonstrated solid or cystic mass lesion. There is no abnormal contrast enhancement. Normal epiglottis, bilateral vallecula and hypopharynx. The pre-epiglottic and paraglottic adipose spaces are normal. Normal visualized bilateral piriform sinuses, aryepiglottic folds, vocal cords, and arytenoid-cricoid articulations. Normal subglottic trachea. Normal bilateral lobes of the thyroid gland. Normal visualized pulmonary apices. Normal visualized paranasal sinuses. There is degenerative changes of the cervical spine. CT/Soft Tissue Neck WITH Contrast IMPRESSION: Interval decrease in the size and number of lymph nodes in the right cervical region. The largest residual nodule is seen in the retrocrural sternocleidomastoid region on the right side and measures 1.6 times by 1.2 cm. Electronically Signed: Hudson Garibay, at 14:44 EST , Service support ,
== END ==
PROVIDERS: Family Provider Family Medicine; PCP Family Medicine; Referring Provider Internal Medicine Hematology & Oncology; Visit Provider Internal Medicine Hematology & Oncology
DX: C81.90 Hodgkin lymphoma, unspecified, unspecified site (principal); Z79.899 Other long term (current) drug therapy
CPT/HCPCS: 70491; 71260; 74177; Q9967

== ENCOUNTER 2019-10-29 09:54 | Day surgery (SDC) | payer MEDICARE, SELFPAY ==
[2019-10-22 09:10] VITALS: BMI 29.4
--- NOTE | 2019-10-22 10:37 | HP_ITS ---
Intake Vital Signs 10/22/19 Height 5 ft 10 in 10/22/19 Weight: 210 lb 10/22/19 BMI 30.1 10/22/19 Respiration 16 10/22/19 Pulse 108 H 10/22/19 Pulse Source Monitor 10/22/19 Temp 98.5 F 10/22/19 Temp Source Oral 10/22/19 Pulse Oximetry (%) 96 10/22/19 Oxygen Delivery Method room air Intake Visit Reasons: Update H & P Hernia Surgery & Port Removal Chief Complaint: Hodgkin's lymphoma, follow-up Low Voltage Technician Required: No Is patient in pain?: Yes (Right groin pain) Pain scale (1-10): 3 Allergies No Known Allergies Allergy (Verified 10/22/19 09:09) Medications Multivitamin [Multiple Vitamins] 1 ea PO DAILY 06/30/18 [History Confirmed 10/22/19] rosuvastatin 5 mg tablet 5 mg PO DAILY 08/27/19 [History Confirmed 10/22/19] [facility] Medical History Encounter for adjustment and management of vascular access device (Acute) Umbilical hernia without obstruction and without gangrene (Acute) Hearing loss (Acute) Neck mass (Acute) Right arm fracture (Acute) Surgical History History of colonoscopy (Acute ~2017) History of tonsillectomy (Acute) S/P surgery on nasal septum (Acute) biopsy/excision, lymph nodes (Acute) port placement (Acute) Family History Other No pertinent family history Social History (Updated 10/22/19 @ 10:37 by Rachel Wright PA-C) Smoking Status: Never smoker alcohol intake: never substance use type: does not use what type of physical activity do you participate in: none HPI HPI HPI: SOPHIE ESPARZA, is a 69 M who presents to the office today for HPI HPI Surgical H&P: Yes HPI: SOPHIE ESPARZA, is a 69 M who presents to the office today for an update history and physical for an upcoming hernia repair and port removal. Patient denies recent hospitalization or illnesses. He has completed chemotherapy and would like the port removed. He denies past cardiac and pulmonary history. He denies smoking and alcohol consumption. He denies previous complications or side effects from anesthesia. He denies change in bowel habits. Patient's previous history per Dr. Horvath: SOPHIE ESPARZA, is a 69 M who presents to the office today for surgical consultation regarding an indwelling left IJ port which I placed for him February 04, 2019 for Hodgkin's lymphoma and also the presence of a right inguinal hernia. With treatment for his Hodgkin's the patient has had some weight loss. He is developed a noticeable bump in the right groin. He is current referred by his oncologist Dr. Bassem Powell and a written copy of my surgical consult recommendations will be returned to him. In work-up of the weight loss the patient had a CT scan of the abdomen performed. That was performed on August 13, 2019. A right-sided inguinal hernia containing adipose tissue was identified. A small umbilical hernia with fat was seen. The patient states that if he lies down he can manipulate the hernia back in. He remains very active at age 69 ROS General General: No weight change, appetite, fatigue, colon cancer, breast cancer or weakness HEENT HEENT: No difficulty swallowing, eye injury, eye surgery, swollen glands or hoarseness Endo Endocrine: No thyroid disease, diabetes mellitus, thyroid cancer, Hair loss, heat intolerance or cold intolerance Breast Breast: No left breast lump, right breast lump, nipple discharge, breast pain, abnormal mammogram, abnormal US or breast enlargement Musc Musculoskeletal: Yes arthritis; no back problems, rheumatoid arthritis, gout or joint pain Cardio Cardiovascular: No murmur, pacemaker, heart disease, atrial fibrillation, high blood pressure, heart attack, heart stent, palpitations, shortness of breat with exertion or chest pain Resp Respiratory: No shortness of breath, No sleep apnea, No cough, No COPD, No asthma, No emphysema, No wheezing Gastro Gastrointestinal: No abdominal pain, No nausea or vomiting, No diarrhea, Yes constipation, No blood in stool, No acid reflux, No hemorrhoids, No ulcers, No gallbladder problem, No black,tarry stools [place]en Hematologic: No blood thinners, No blood disorders, No bleeding, No anemia, No blood clots Neuro Neurologic: No weakness Exam Const General: cooperative, healthy appearing, comfortable, no acute distress [facility] Head: normal to inspection Eyes General: appearance normal, both eyes and all related structures Neck Neck: normal visual inspection Neck mass: No Chest Breast Palpation: No nipple discharge Resp Effort & Inspection: normal respiratory effort Auscultation: clear to auscultation bilaterally Cardio Rate: regular rate Rhythm: regular rhythm Heart Sounds: no murmurs GI Inspection: normal to inspection Palpation: soft Auscultation: normal bowel sounds Other: Right inguinal hernia; reducible. Small umbilical hernia Skin General: no rashes or lesions noted Neuro General: no focal motor deficits, CN's II-XI intact bilaterally Extrem General: normal to inspection Psych Appearance: grossly normal Affect: normal affect Assessment & Plan Problems 1. Umbilical hernia without obstruction and without gangrene K42.9 2. Encounter for adjustment and management of vascular access device Z45.2 3. Right inguinal hernia K40.[address] Horvath will plan to perform a laparoscopic right inguinal hernia repair with mesh and umbilical hernia repair with possible mesh and removal of left chest port-a-cath. Procedure details were reviewed. Patient has had the opportunity to ask and have questions answered. Patient verbally understands and agrees with the plan. Plan Detail Goals Decrease pain and inflammation Coding Level of Care Code No Charge Diagnoses Umbilical hernia without obstruction and without gangrene K42.9 Encounter for adjustment and management of vascular access device Z45.2 Right inguinal hernia K40.90 Comment Update H&P 10/22/19 1038 <Electronically signed by Rachel kirby PA-C> Date _ Rachel Wright PA-C
[2019-10-29 10:23] VITALS: BP 106/84; PULSE 72; RESP 16; TEMP 36.6; O2SAT 97; BMI 30.4
[2019-10-29] MEDS: Lactated Ringers 1,000 ML 100 ML IV ×2 (10:37→16:47)
--- NOTE | 2019-10-29 11:32 | HP.PCM_ITS ---
Problem List (1) Encounter for adjustment and management of vascular access device Status: Acute (2) Right groin hernia Status: Acute (3) Umbilical hernia without obstruction and without gangrene Status: Acute History and Physical Date of Admission: 10/29/19 Intake Visit Reasons: Update H & P Hernia Surgery & Port Removal Chief Complaint: Hodgkin's lymphoma, follow-up Detective And Intelligence Analyst Required: No Is patient in pain?: Yes (Right groin pain) Pain scale (1-10): 3 Allergies No Known Allergies Allergy (Verified 10/22/19 09:09) Medications Multivitamin [Multiple Vitamins] 1 ea PO DAILY 06/30/18 [History Confirmed 10/22/19] rosuvastatin 5 mg tablet 5 mg PO DAILY 08/27/19 [History Confirmed 10/22/19] [facility] Medical History Encounter for adjustment and management of vascular access device (Acute) Umbilical hernia without obstruction and without gangrene (Acute) Hearing loss (Acute) Neck mass (Acute) Right arm fracture (Acute) Surgical History History of colonoscopy (Acute ~2017) History of tonsillectomy (Acute) S/P surgery on nasal septum (Acute) biopsy/excision, lymph nodes (Acute) port placement (Acute) Family History Other No pertinent family history Social History (Updated 10/22/19 @ 10:37 by Rachel Wright PA-C) Smoking Status: Never smoker alcohol intake: never substance use type: does not use what type of physical activity do you participate in: none HPI HPI HPI: SOPHIE ESPARZA, is a 69 M who presents to the office today for HPI HPI Surgical H&P: Yes HPI: SOPHIE ESPARZA, is a 69 M who presents to the office today for an update history and physical for an upcoming hernia repair and port removal. Patient denies recent hospitalization or illnesses. He has completed chemotherapy and would like the port removed. He denies past cardiac and pulmonary history. He denies smoking and alcohol consumption. He denies previous complications or side effects from anesthesia. He denies change in bowel habits. Patient's previous history per Dr. Horvath: SOPHIE ESPARZA, is a 69 M who presents to the office today for surgical consultation regarding an indwelling left IJ port which I placed for him February 04, 2019 for Hodgkin's lymphoma and also the presence of a right inguinal hernia. With treatment for his Hodgkin's the patient has had some weight loss. He is developed a noticeable bump in the right groin. He is current referred by his oncologist Dr. Bassem Powell and a written copy of my surgical consult recommendations will be returned to him. In work-up of the weight loss the patient had a CT scan of the abdomen performed. That was performed on August 13, 2019. A right-sided inguinal hernia containing adipose tissue was identified. A small umbilical hernia with fat was seen. The patient states that if he lies down he can manipulate the hernia back in. He remains very active at age 69 ROS General General: No weight change, appetite, fatigue, colon cancer, breast cancer or weakness HEENT HEENT: No difficulty swallowing, eye injury, eye surgery, swollen glands or hoarseness Endo Endocrine: No thyroid disease, diabetes mellitus, thyroid cancer, Hair loss, heat intolerance or cold intolerance Breast Breast: No left breast lump, right breast lump, nipple discharge, breast pain, abnormal mammogram, abnormal US or breast enlargement Musc Musculoskeletal: Yes arthritis; no back problems, rheumatoid arthritis, gout or joint pain Cardio Cardiovascular: No murmur, pacemaker, heart disease, atrial fibrillation, high blood pressure, heart attack, heart stent, palpitations, shortness of breat with exertion or chest pain Resp Respiratory: No shortness of breath, No sleep apnea, No cough, No COPD, No asthma, No emphysema, No wheezing Gastro Gastrointestinal: No abdominal pain, No nausea or vomiting, No diarrhea, Yes constipation, No blood in stool, No acid reflux, No hemorrhoids, No ulcers, No gallbladder problem, No black,tarry stools [place] Hematologic: No blood thinners, No blood disorders, No bleeding, No anemia, No blood clots Neuro Neurologic: No weakness Exam Const General: cooperative, healthy appearing, comfortable, no acute distress [facility] Head: normal to inspection Eyes General: appearance normal, both eyes and all related structures Neck Neck: normal visual inspection Neck mass: No Chest Breast Palpation: No nipple discharge Resp Effort & Inspection: normal respiratory effort Auscultation: clear to auscultation bilaterally Cardio Rate: regular rate Rhythm: regular rhythm Heart Sounds: no murmurs GI Inspection: normal to inspection Palpation: soft Auscultation: normal bowel sounds Other: Right inguinal hernia; reducible. Small umbilical hernia Skin General: no rashes or lesions noted Neuro General: no focal motor deficits, CN's II-XI intact bilaterally Extrem General: normal to inspection Psych Appearance: grossly normal Affect: normal affect Assessment & Plan Problems 1. Umbilical hernia without obstruction and without gangrene K42.9 2. Encounter for adjustment and management of vascular access device Z45.2 3. Right inguinal hernia K40.[address] Horvath will plan to perform a laparoscopic right inguinal hernia repair with mesh and umbilical hernia repair with possible mesh and removal of left chest port-a-cath. Procedure details were reviewed. Patient has had the opportunity to ask and have questions answered. Patient verbally understands and agrees with the plan. Plan Detail Goals Decrease pain and inflammation Coding Level of Care Code No Charge Diagnoses Umbilical hernia without obstruction and without gangrene K42.9 Encounter for adjustment and management of vascular access device Z45.2 Right inguinal hernia K40.90 Comment Update H&P 10/22/19 1038 <Electronically signed by Rachel kirby PA-C> Date _ Rachel Wright PA-C I have re-examined the patient. There are no clinical changes since date of exam.
[2019-10-29] MEDS: Cefazolin 2 GM in 0.9% Normal Saline 100 ML IV (12:42)
[2019-10-29] MEDS: Bupivacaine Mpf 0.5% 30 ML VIAL (13:30)
--- NOTE | 2019-10-29 13:48 | DCINST_ITS ---
Discharge Diet: Light diet - advance as tolerated - if you have questions about your diet instructions, please talk to you doctor. Discharge Activity: May Not Drive - for 1 week or while taking narcotic pain medicine. May shower in (days): 1 Lifting Restrictions: 10 pounds Call your doctor if your incision/area has: Continuous Slow Oozing, Sudden Increased Bleeding, Increased Pain/ Swelling, Increased Redness, Foul Smelling Discharge Call your doctor if you observe: Fever of 101 or Higher Suture Line Care: Avoid Pulling/Pushing, Avoid Pinching/Bending Additional Dressing/Incision Instructions:: Change or remove dressing in 4 days. Leave steri-strips in place for 1 week. Allergies/Adverse Reactions: Allergies No Known Allergies Allergy (Verified 10/29/19 10:13) Medications to take at Discharge Multivitamin [Multiple Vitamins] 1 ea PO DAILY 06/30/18 rosuvastatin 5 mg tablet 5 mg PO DAILY 08/27/19 Primary Care Physician: Huy Rivera MD [Primary Care Provider] - Test Results: Test results from this visit will be discussed in further detail at your follow- up appointment, if applicable. Please Follow Up With: Raymond Horvath MD - [phone] When: Call to make an appointment to be seen in about 10 days.
--- NOTE | 2019-10-29 13:49 | OP.PCM_ITS ---
Problem List (1) Encounter for adjustment and management of vascular access device Status: Acute (2) Right groin hernia Status: Acute (3) Umbilical hernia without obstruction and without gangrene Status: Acute Report of Operation Date of Procedure: 10/29/19 Pre-Operative Diagnosis: Right inguinal hernia, umbilical hernia, indwelling left internal jugular port Post-Operative Diagnosis: Direct right inguinal hernia, umbilical hernia, indwelling left internal jugular port Surgery/Procedure Performed:: Laparoscopic right inguinal herniorrhaphy with Bard 3 DMax large mesh. Umbilical herniorrhaphy with ventralex ST mesh. Removal left internal jugular port. 3D max, lot number [id number]. Reference #[id number]. Expiry date 04/29/2024. Ventralex mesh 6.4 cm diameter Lot number [id number]. Reference #[id number]. Expiry date 04/29/2021 Description of Surgical Findings:: Timeout and informed consent was obtained. 69-year-old gentleman was taken the operating placement table underwent general endotracheal intubation and anesthesia. The abdomen and chest were sterilely prepped and draped. Ancef 2 g were given intravenously preoperatively. A curvilinear incision was made in the inferior portion of the umbilicus sharp and blunt dissection was used to identify the umbilical hernia the umbilical skin was dissected free. Holding sutures of 0 Vicryl placed. A varies needle inserted. Saline drop test performed. The abdomen was insufflated with CO2 to a pressure of 10 mmHg pressure. 10 mm trocar inserted. 10 mm laparoscope inserted. No evidence of any trocar injuries. Inspection revealed adhesions of sigmoid appendices epiploica to the left lower quadrant and groin area partially obscuring the view. No gross hernias identified. There is evidence of a punched out direct inguinal hernia on the right. No evidence of superficial abnormalities. 5 mm trochars were placed in the right left lower quadrants. Under laparoscopic visualization a ilioinguinal nerve block was performed with 0.5% Marcaine. Skin sites had been pre-anesthetized with the same. The peritoneum superior lateral to the internal ring was incised and carried medially. The peritoneum was dissected free until the direct space indirect space femoral area was completely identified. A large 3D Bard max mesh was placed was to cover the direct indirect and femoral area. Excellent coverage was achieved. It was secured laterally superiorly and medially with secure strap. I felt that I got very good positioning. The peritoneum was then approximated to itself using hemo- lock clips and secure strap. Complete obliteration to the mesh was achieved. The scope and central trocar was removed. A 6.4 cm ventral X mesh was inserted at the umbilicus. The tails were secured with interrupted 0 Nurolon. Then the fascia was approximated transversely with multiple simple sutures of 0 Nurolon. Skin edges were approximated with interrupted 4-0 Monocryl subdermal stitches. Inspection revealed that mesh to be in good position. The abdomen was allowed to deflate of the CO2. Port sites were closed with erupted 4-0 Monocryl. Attention was drawn to the left chest port. The small skin scar was transversely elliptically excised. Sharp dissection carried down through the subcutaneous tissues. The capsule was incised and then there holding sutures released. With direct pressure held upon the tunnel site the port was removed easily. The subdermal tissues were approximated with a running subcuticular 4-0 Monocryl. Steri-Strips Telfa OpSite dressings applied to all wounds. Sponge and instrument and needle counts were reported to the surgeon to be correct. Blood loss was minimal. Specimens port. Drains none. Blood loss minimal. The patient was taken to the recovery area in satisfactory addition without apparent complication Raymond Horvath M.D., F.A.C.S. Type of Anesthesia:: General Anesthesiologist: Shakeel Mejia
[2019-10-29 14:00] VITALS: BP 106/84; BP 153/73; PULSE 79; RESP 18; TEMP 36.4; O2SAT 94
[2019-10-29 14:15] VITALS: BP 106/84; BP 118/78; PULSE 78; RESP 18; O2SAT 94
[2019-10-29 14:30] VITALS: BP 106/84; BP 139/83; PULSE 72; RESP 18; O2SAT 92
[2019-10-29 14:37] VITALS: BP 106/84; BP 131/78; PULSE 71; RESP 18; TEMP 36.3; O2SAT 92
[2019-10-29] MEDS: Acetaminophen 325 MG Tablet 650 MG PO (15:16)
[2019-10-29 18:39] VITALS: BP 106/84; BP 137/80; PULSE 74; RESP 18; TEMP 36.4; O2SAT 94
== END 2019-10-29 18:54 | disposition home or self-care (01) ==
LOC: SDC 09:56 → AC 10:01
PROVIDERS: PCP Family Medicine; Referring Provider Surgery; Visit Provider Surgery
PROC: (CPT 49650; principal; 2019-10-29 12:10)
DX: K40.90 Unilateral inguinal hernia, without obstruction or gangrene, not specified as recurrent (principal); K42.9 Umbilical hernia without obstruction or gangrene; Z45.2 Encounter for adjustment and management of vascular access device; I49.3 Ventricular premature depolarization; E78.00 Pure hypercholesterolemia, unspecified; H91.90 Unspecified hearing loss, unspecified ear; Z85.71 Personal history of Hodgkin lymphoma; Z92.21 Personal history of antineoplastic chemotherapy
CPT/HCPCS: 00840; 36590; 49585; 49650; C1781; J7120; J2405

== ENCOUNTER → 2020-03-29 07:06 | Outpatient (CLI) | payer MEDICARE, SELFPAY ==
[2020-01-06 10:46] VITALS: BMI 30.3
--- NOTE | 2020-03-29 07:07 | CT_ITS ---
STUDY: CT ABDOMEN AND PELVIS WITHOUT CONTRAST REASON FOR EXAM: Male, 69 years old. [facility] LYMPHOMA ASSESS TREATMENT RESPONSE, PT STATES THAT HE HAS NOT BEEN FEELING WELL, HAD CHEMO RADIATION DOSAGE (If Supplied By Facility): CTDIvol = ( 19 ) mGy, DLP = ( 2045.73 ) mGycm TECHNIQUE: Transaxial images were obtained from the dome of the diaphragm to the symphysis pubis without oral contrast, and without intravenous contrast. Sagittal and coronal images were reconstructed. Individualized dose optimization techniques were used for this CT. COMPARISON: Comparison is made with prior study dated 08-13-19. FINDINGS: Stable minimal increased markings at the lung bases suggestive of scarring. Coronary artery calcification. There is decreased attenuation of the liver consistent with steatosis. Normal gallbladder and extrahepatic biliary system. Normal spleen. Normal pancreas. Normal bilateral adrenal glands. Normal right kidney. Stable left parapelvic cysts as well as a 1 summary a cyst in the lower pole of the left kidney. Normal visualized stomach. Normal small intestine. Normal colon. The appendix is visualized and appears normal. There is diffuse atherosclerotic calcification of the abdominal aorta, without a demonstrated aneurysm. Normal inferior vena cava. Normal retroperitoneum. There is nonspecific increased markings in the root of the mesentery. This may represent changes secondary to prior chemotherapy. This is unchanged. Normal urinary bladder. Normal abdominal wall. There are mild degenerative changes of the visualized lumbar spine. CT/Abdomen/Pelvis W IV Cont ONLY IMPRESSION: Fatty infiltration of the liver. Nonspecific increased markings in the root of the mesentery. This is unchanged. Stable left renal cysts. Electronically Signed: Hudson Garibay, at 13:17 EDT , Service support ,
--- NOTE | 2020-03-29 07:07 | CT_ITS ---
STUDY: CT SOFT TISSUE NECK WITH CONTRAST REASON FOR EXAM: Male, 69 years old. [facility] LYMPHOMA ASSESS TREATMENT RESPONSE, PT STATES THAT HE HAS NOT BEEN FEELING WELL, HAD CHEMO RADIATION DOSAGE (If Supplied By Facility): CTDIvol = ( 19 ) mGy, DLP = ( 2045.73 ) mGycm TECHNIQUE: The patient was scanned in a multi-detector CT scanner. High resolution transaxial imaging was performed following intravenous administration of IV 100mL Isovue-300. Sagittal and coronal images were reconstructed. Individualized dose optimization techniques were used for this CT. COMPARISON: Comparison is made with prior examination dated 08-13-19. FINDINGS: Normal bilateral parotid glands. Normal bilateral piece worker spaces. Normal bilateral parapharyngeal spaces. Normal bilateral carotid spaces. Normal bilateral sublingual and submandibular glands and spaces. Normal visualized nasopharynx. Normal retropharyngeal space. Normal perivertebral space. Normal visualized bilateral faucial tonsils. The visualized tongue, tongue base and oropharynx are normal. Stable lymph node measuring 1.6 cm x 1.1 cm is seen in the posterior triangle on the right side of the neck. Stable appearance of small lymph nodes in the right supraclavicular region. There is no demonstrated solid or cystic mass lesion. There is no abnormal contrast enhancement. Normal epiglottis, bilateral vallecula and hypopharynx. The pre-epiglottic and paraglottic adipose spaces are normal. Normal visualized bilateral piriform sinuses, aryepiglottic folds, vocal cords, and arytenoid-cricoid articulations. Normal subglottic trachea. Normal bilateral lobes of the thyroid gland. Normal visualized pulmonary apices. Normal visualized paranasal sinuses. There is multilevel degenerative changes of the cervical spine. CT/Soft Tissue Neck WITH Contrast IMPRESSION: Stable examination. Electronically Signed: Hudson Garibay, at 13:10 EDT , Service support ,
--- NOTE | 2020-03-29 07:07 | CT_ITS ---
STUDY: CT CHEST WITH CONTRAST REASON FOR EXAM: Male, 69 years old. [facility] LYMPHOMA ASSESS TREATMENT RESPONSE, PT STATES THAT HE HAS NOT BEEN FEELING WELL, HAD CHEMO RADIATION DOSAGE (If Supplied By Facility): CTDIvol = ( 19 ) mGy, DLP = ( 2045.73 ) mGycm TECHNIQUE: Transaxial imaging was performed following intravenous administration of IV 100mL Isovue-300. Multiplanar coronal and sagittal images were reformatted. Individualized dose optimization techniques were used for this CT. COMPARISON: Comparison is made with prior study dated 08-13-19. FINDINGS: Stable mild degree of increased linear markings at the lung bases suggestive of scarring. There is no demonstrated pleural abnormality. There are calcifications of the coronary arteries. Normal mediastinum. Normal hilar regions. Normal enhanced pulmonary arteries. Normal aorta arch and descending thoracic aorta. There are multi-level degenerative changes of the thoracic spine. Increased kyphosis. Prior ORIF of the right humeral shaft. There is no demonstrated abnormality of the visualized upper abdomen. CT/Chest WITH Contrast IMPRESSION: Stable examination. Electronically Signed: Hudson Garibay, at 13:28 EDT , Service support ,
== END ==
PROVIDERS: PCP Family Medicine; Referring Provider Internal Medicine Hematology & Oncology; Visit Provider Internal Medicine Hematology & Oncology
DX: C81.90 Hodgkin lymphoma, unspecified, unspecified site (principal)
CPT/HCPCS: 70491; 71260; 74177; Q9967

== ENCOUNTER 2020-04-29 09:18 | Outpatient (RCR) | payer MEDICARE, SELFPAY ==
[2020-04-05 13:30] VITALS: BMI 29.9
--- NOTE | 2020-05-03 08:02 | HP.PTEVAL_ITS ---
Patient's Visit Information SOPHIE ESPARZA is a 70 year old M referred to Physical Therapy by Dr. Huy Rivera MD with a diagnosis of Lumbar DDD. Date of Evaluation: 04/29/20 Physical Therapist: Nicho Steinberg DPT - Visit Plan Frequency: 1x/Week Duration: 1 Week Plan: Pt. desires to have HEP in gym to focus on core, hip, glute, back strengthening. Pt. educateed in gym exercises today and to complete on his own. I will leave case open in the chance that he need further instruction. I did not submit for more visits at this point in time. - Subjective Pt. is here today for his initial evaluation with diagnosis of lumbar DDD. Pt. reports having pain fro ~30+ years. 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 He reports having sciatic like issues twice in his life causing him to be on a weeks bedrest of each occassion. Pt. is now having constant low grade back pain that increases with any lifting. Pt. has recently recoved from cancer where he was very limited in his mobility for several months. Pt. is now hopeful to increase his overall strength/endurance and to increase core/lower back strength. - Pain Lumbar spine Pain Intensity (Out of 10): 1 Pain Intensity Range: 0, 4 - Objective POSTURE: Pt. has sligth flexion of lumbar spine, anterior pelvic tilt. PALPATION: Pt. has stiffness with PAs throughout lumbar spine. Pt. has no tenderness along lumbar paraspinals or multifidus. NEURO: Pt. has normal sensation of BLEs. Pt. has normal DTR of BLEs. ROM: Lumbar spine: fleixon- min loss increase NW, extension mod loss increase NW, rotaton- min loss Gamal NE, SB min loss bilat NE. Tight HS noted bilaterally. MMT: BLEs 5-/5 troughout; core- lower abdominals- fair-, Upper abdominals- fair-. Mulifidus- fair-. GAIT: Pt. ambulates well with minimal issue. Otherwise normal gait pattern. STAIRS: Normal pattern- no increase in symptoms. - Special Tests L/S Slump test left side: Negative L/S Slump test right side: Negative L/S Left Straight Leg Raise: Negative L/S Right Straight Leg Raise: Negative Lumbar Standing: Flexion - Mechanical Response: No effect Lumbar Standing: Flexion - Symptoms During Testing: Increases Lumbar Standing: Flexion - Symptoms After Testing: No worse Lumbar Standing: Extension - Mechanical Response: No effect Lumbar Standing: Extension - Symptoms During Testing: Increases Lumbar Standing: Extension - Symptoms After Testing: No worse - Goals Goal 1:: STG: Pt. to be I with HEP in gym for core, multifidus, hip abd and glute strengthening. Goal Time Frame: 1 Week - Rehabilitation Potential Physical Therapy Diagnosis: Pt. has signs and symptoms consistent with lower lumbar DDD with subsequent weakness of core, BLEs and lumbar stability muscles. Pt. would benefit from PT to be educated in proper gym exercises to focus on his above limitations. Rehabilitation Potential: Good - Anticipated Interventions Patient/Client Instruction: Educate patient on: Condition, Plan of Care, Risk Factors, Benefits of Fitness Program For the Purpose of:: To improve decision making, To facilitate caregiver knowledge, To improve self management, To prevent re-injury, To improve ability to perform tasks related to life management, To improve tolerance to ADL's Therapeutic Exercise to Include: Strength training, Power training, Endurance training, Flexibilty training, Gait and locomotor training, Passive ROM, Active ROM, Dynamic Lumbar Stabilization For the Purpose of:: To decrease pain, To decrease swelling/inflammation, To increase ROM, To improve nutrient delivery to tissue, To improve gait and locomotor functions, To improve health of tissue, To decrease soft tissue restriction, To increase flexibility/ROM Thank you for the opportunity to evaluate your patient. For Medicare and Medicare HMO plans, please review the plan of care and approve it. It will need to be FAXED BACK to us at [phone] for Medicare purposes. For Medicare only, by signing this I certify the plan of care. Please let me know if there are questions or concerns regarding this plan of care. Physician Signature: Date:
== END 2020-04-29 19:00 | disposition home or self-care (01) ==
LOC: PT 09:18
PROVIDERS: PCP Family Medicine; Referring Provider Family Medicine; Visit Provider Family Medicine
DX: M51.36 Other intervertebral disc degeneration, lumbar region (principal)
CPT/HCPCS: 97110; 97161

== ENCOUNTER → 2020-09-29 08:10 | Outpatient (CLI) | payer MEDICARE, SELFPAY ==
[2020-07-04 13:12] VITALS: BMI 30.5
--- NOTE | 2020-09-29 08:12 | CT_ITS ---
STUDY: CT CHEST WITH CONTRAST REASON FOR EXAM: Male, 70 years old. LYMPHOMA CHECK UP RADIATION DOSAGE (If Supplied By Facility): CTDIvol = ( 19.10 ) mGy, DLP = ( 2252.69 ) mGycm TECHNIQUE: Transaxial imaging was performed following intravenous administration of IV 100mL Isovue-300. Individualized dose optimization techniques were used for this CT. COMPARISON: CT chest 03/29/2020 FINDINGS: The lungs are normal. There is no demonstrated pleural abnormality. Subsegmental atelectasis left base. Normal heart and pericardium. Coronary artery disease. Normal mediastinum. Normal hilar regions. Normal enhanced pulmonary arteries. Normal aorta arch and descending thoracic aorta. 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 There is no demonstrated abnormality of the visualized upper abdomen. CT/Chest WITH Contrast IMPRESSION: No acute disease. Coronary artery disease. Electronically Signed: Carloz Fink MD at 0:00 EST , Service support ,
--- NOTE | 2020-09-29 08:12 | CT_ITS ---
STUDY: CT SOFT TISSUE NECK WITH CONTRAST REASON FOR EXAM: Male, 70 years old. LYMPHOMA CHECK UP RADIATION DOSAGE (If Supplied By Facility): CTDIvol = ( 19.10 ) mGy, DLP = ( 2252.69 ) mGycm TECHNIQUE: The patient was scanned in a multi-detector CT scanner. High resolution transaxial imaging was performed following intravenous administration of IV 100mL Isovue-300. Sagittal and coronal images were reconstructed. Individualized dose optimization techniques were used for this CT. COMPARISON: Comparison is made with prior study dated 03/29/2020. FINDINGS: Normal bilateral parotid glands. 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 Normal bilateral parapharyngeal spaces. Normal bilateral carotid spaces. Normal bilateral sublingual and submandibular glands and spaces. Normal visualized nasopharynx. Normal retropharyngeal space. Normal perivertebral space. Normal visualized bilateral faucial tonsils. The visualized tongue, tongue base and oropharynx are normal. Stable well-defined lymph node in the posterior triangle of the right side of the neck just deep to the right sternocleidomastoid muscle measuring 1.4 cm. Stable small benign-appearing right supraclavicular lymph nodes. There is no demonstrated solid or cystic mass lesion. There is no abnormal contrast enhancement. Normal epiglottis, bilateral vallecula and hypopharynx. The pre-epiglottic and paraglottic adipose spaces are normal. Normal visualized bilateral piriform sinuses, aryepiglottic folds, vocal cords, and arytenoid-cricoid articulations. Normal subglottic trachea. Normal bilateral lobes of the thyroid gland. Normal visualized pulmonary apices. Normal visualized paranasal sinuses. There is multilevel degenerative changes of the cervical spine. CT/Soft Tissue Neck WITH Contrast IMPRESSION: Stable 1.4 cm well-defined lymph node in the posterior triangle of the right side of the neck the right sternal cleidomastoid muscle Electronically Signed: Hudson Garibay MD at 8:56 EST , Service support ,
--- NOTE | 2020-09-29 08:12 | CT_ITS ---
STUDY: CT ABDOMEN AND PELVIS WITH CONTRAST REASON FOR EXAM: Male, 70 years old. [facility]ILLANCE LYMPHOMA, HERNIA REPAIR RADIATION DOSAGE (If Supplied By Facility): CTDIvol = ( 19.10 ) mGy, DLP = ( 2252.69 ) mGycm TECHNIQUE: Transaxial images were obtained from the dome of the diaphragm to the symphysis pubis without oral contrast. IV 100mL Isovue-300 was administered. Sagittal and coronal images were reconstructed. Individualized dose optimization techniques were used for this CT. COMPARISON: Comparison is made with prior study dated 03/29/2020. FINDINGS: The visualized lung bases are unremarkable. The visualized portions of the heart are within normal limits. There is decreased attenuation of the liver consistent with steatosis. Normal gallbladder and extrahepatic biliary system. Normal spleen. Normal pancreas. Normal bilateral adrenal glands. Normal right kidney. Stable left parapelvic renal cysts. Stable 1 some U cyst in the lower pole of the left kidney. Normal visualized stomach. Normal small intestine. Normal colon. The appendix is visualized and appears normal. There is diffuse atherosclerotic calcification of the abdominal aorta, without a demonstrated aneurysm. Normal inferior vena cava. Normal retroperitoneum. Stable appearance of the nonspecific mild degree of increased markings in the root of the mesentery. Normal urinary bladder. Normal abdominal wall. There are mild degenerative changes of the visualized lumbar spine. CT/Abdomen/Pelvis W IV Cont ONLY IMPRESSION: Stable examination. Electronically Signed: Hudson Garibay MD at 8:59 EST , Service support ,
[2020-09-29 08:36] LABS: CREATININE FINGERSTICK 1.2 mg/dL (0.70-1.30)
== END ==
PROVIDERS: PCP Family Medicine; Visit Provider Internal Medicine Hematology & Oncology
DX: C81.91 Hodgkin lymphoma, unspecified, lymph nodes of head, face, and neck (principal)
CPT/HCPCS: 70491; 71260; 74177; Q9967

== ENCOUNTER 2020-10-31 16:37 | Outpatient (RCR) | payer MEDICARE, SELFPAY ==
[2020-10-04 13:28] VITALS: BMI 30.7
== END 2020-10-31 23:59 ==
LOC: IMMUN 16:37
PROVIDERS: PCP Family Medicine; Referring Provider Family Medicine; Visit Provider Family Medicine
DX: Z23 Encounter for immunization (principal)
CPT/HCPCS: 0011A; 0012A

== ENCOUNTER → 2021-07-10 07:09 | Outpatient (CLI) | payer MEDICARE, SELFPAY ==
--- NOTE | 2021-07-10 07:13 | CT_ITS ---
STUDY: CT SOFT TISSUE NECK WITH CONTRAST REASON FOR EXAM: Male, 71 years old. F/U TREATMENT [facility] LYMPHOMA RADIATION DOSAGE (If Supplied By Facility): CTDIvol = ( 18.86 ) mGy, DLP = ( 1963.09 ) mGycm TECHNIQUE: The patient was scanned in a multi-detector CT scanner. High resolution transaxial imaging was performed following intravenous administration of IV 100mL Isovue-300. Sagittal and coronal images were reconstructed. Individualized dose optimization techniques were used for this CT. COMPARISON: Comparison is made with prior examination dated 09/29/2020. FINDINGS: Normal bilateral parotid glands. 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 Normal bilateral parapharyngeal spaces. Normal bilateral carotid spaces. Normal bilateral sublingual and submandibular glands and spaces. Normal visualized nasopharynx. Normal retropharyngeal space. Normal perivertebral space. Normal visualized bilateral faucial tonsils. The visualized tongue, tongue base and oropharynx are normal. Slight decrease in size of the lymph nodes in the right posterior triangle of the neck just deep to the right sternocleidomastoid muscle. It presently measures 1.26 cm x 0.7 cm. Stable small scattered benign-appearing bilateral cervical lymph nodes. Stable small less than 1 cm supraclavicular lymph nodes. There is no demonstrated solid or cystic mass lesion. There is no abnormal contrast enhancement. Normal epiglottis, bilateral vallecula and hypopharynx. The pre-epiglottic and paraglottic adipose spaces are normal. Normal visualized bilateral piriform sinuses, aryepiglottic folds, vocal cords, and arytenoid-cricoid articulations. Normal subglottic trachea. Normal bilateral lobes of the thyroid gland. Normal visualized pulmonary apices. Normal visualized paranasal sinuses. There is multilevel degenerative changes of the cervical spine. CT/Soft Tissue Neck WITH Contrast IMPRESSION: Slight decrease in size of the previously seen lymph node in the posterior triangle of the neck on the right side just deep to the sternocleidomastoid muscle. Electronically Signed: Hudson Garibay MD at 9:19 EST , Service support ,
--- NOTE | 2021-07-10 07:13 | CT_ITS ---
EXAM: CT CHEST, ABDOMEN AND PELVIS WITH INTRAVENOUS CONTRAST CLINICAL INDICATION: F/U TREATMENT [facility] LYMPHOMA TECHNIQUE: Helically acquired images were obtained of the chest, abdomen and pelvis with intravenous contrast. This CT exam was performed using one or more of the following dose reduction techniques: automated exposure control, adjustment of the mA and/or kV according to patient size, and/or use of iterative reconstruction technique. This report was created using [employer] report generation technology. CONTRAST: IV 100mL Isovue-300 COMPARISON: 09/29/2020 CT, 12/27/2020 PET scan FINDINGS: CHEST: LUNGS AND PLEURAL SPACES: Unremarkable. No mass. No consolidation or edema. No pleural effusion or thickening. No pneumothorax. HEART: Unremarkable. Heart size is normal. No pericardial effusion. MEDIASTINUM: Unremarkable. No mediastinal or hilar adenopathy. Esophagus is unremarkable. No hiatal hernia. THYROID: Unremarkable. No thyroid lesions. ABDOMEN: LIVER: Unremarkable. Homogeneous. No focal mass. GALLBLADDER AND BILE DUCTS: Unremarkable. No calcified gallstones. No gallbladder distention or wall edema. No intra- or extrahepatic biliary ductal dilation. PANCREAS: Unremarkable. No focal cystic or solid mass. SPLEEN: Unremarkable. Normal size without focal cystic or solid mass. ADRENALS: Unremarkable. No nodules. KIDNEYS AND URETERS: Stable left parapelvic renal cysts. No hydronephrosis. STOMACH AND BOWEL: Unremarkable. No stomach or bowel distention. No focal inflammatory change. PELVIS: APPENDIX: No evidence of acute appendicitis. BLADDER: Unremarkable. REPRODUCTIVE: Calcifications of the prostate gland. CHEST, ABDOMEN and PELVIS: INTRAPERITONEAL SPACE: Unremarkable. No ascites or other fluid collection. No free air. BONES/JOINTS: Degenerative changes of the bilateral shoulders and spine. No suspicious lytic or blastic abnormality. SOFT TISSUES: Operative changes of the right inguinal abdominal wall. No discrete abdominal or pelvic wall hernia. VASCULATURE: Atherosclerosis of the abdominal aorta and iliac arteries. Atherosclerosis of the coronary arteries. Aorta is non-dilated. No aortic dissection. No obvious central pulmonary embolism although this study was not performed with the pulmonary embolism protocol. LYMPH NODES: Stable diffuse induration of the mesentery with preserved halo around mesenteric vessels. No mesenteric mass/adenopathy. CT/CT Chest, Abd, Pel w/Contrast IMPRESSION: 1. Since 09/29/2020, stable exam. No intrathoracic/abdominal/pelvic mass/adenopathy. 2. Stable chronic changes, as above. Electronically Signed: Salomón Adams MD (Brooks) at 9:04 EST , Service support ,
[2021-07-10 07:31] LABS: EGFR FINGERSTICK > 60.0000 mL/min (>60)
== END ==
PROVIDERS: PCP Family Medicine; Referring Provider Internal Medicine Hematology & Oncology; Visit Provider Internal Medicine Hematology & Oncology
DX: C81.90 Hodgkin lymphoma, unspecified, unspecified site (principal)
CPT/HCPCS: 70491; 71260; 74177; Q9967

== ENCOUNTER 2021-09-07 13:50 | Outpatient (CLI) | payer MEDICARE, SELFPAY ==
[2021-09-07 18:13] LABS: Cholesterol 179 mg/dL (200); High Density Lipoprotein 41 mg/dL; PSA,Total - Annual Screen 0.45 ng/mL (0.00-4.00); Triglycerides 117 mg/dL; Very Low Density Lipoprotein 23 mg/dL (5-40)
[2021-09-08 07:32] LABS: Hepatitis C Antibody Non-Reactive (Nonreactive)
== END 2021-09-07 23:59 | disposition short-term general hospital (02) ==
PROVIDERS: PCP Family Medicine; Referring Provider Family Medicine; Visit Provider Family Medicine
DX: E78.5 Hyperlipidemia, unspecified (principal); Z12.5 Encounter for screening for malignant neoplasm of prostate; Z11.59 Encounter for screening for other viral diseases
CPT/HCPCS: 36415; 80061; 84153; 86803; G0103

== ENCOUNTER → 2022-10-08 | Outpatient (CLI) | payer MEDICARE, SELFPAY ==
--- NOTE | 2022-10-08 09:50 | RAD_ITS ---
STUDY: X-RAY CHEST REASON FOR EXAM: Male, 72 years old. Chest pain/pressure TECHNIQUE: PA and lateral views of the chest. COMPARISON: None. FINDINGS: Lungs are underexpanded with superimposed lingular atelectasis or early infiltrate. No demonstrated effusion. Normal size heart. Normal mediastinum and sebas. Normal visualized pulmonary arteries. Normal visualized aortic arch and descending thoracic aorta. There are diffuse degenerative changes of the visualized thoracic spine. Normal visualized ribs, clavicles, and shoulders. There is no demonstrated abnormality of the visualized soft tissue structures of the upper abdomen. RAD/Chest PA and Lateral IMPRESSION: Underexpanded lungs with lingular atelectasis or early infiltrate. Follow-up recommended to ensure resolution Electronically Signed: Walt Tapia MD at 16:56 EST ,
== END | disposition home or self-care (01) ==
LOC: MTRAD 09:48
PROVIDERS: PCP Family Medicine; Referring Provider Family Medicine; Visit Provider Family Medicine
DX: J39.9 Disease of upper respiratory tract, unspecified (principal)
CPT/HCPCS: 71046

== ENCOUNTER → 2022-10-26 | Outpatient (CLI) | payer MEDICARE, SELFPAY ==
[2022-10-26] MEDS: Zolpidem Tartrate 5 MG Tablet PO (22:00)
== END | disposition home or self-care (01) ==
LOC: SL 20:44
PROVIDERS: PCP Family Medicine; Referring Provider Nurse Practitioner Acute Care; Visit Provider Nurse Practitioner Acute Care
DX: G47.33 Obstructive sleep apnea (adult) (pediatric) (principal)
CPT/HCPCS: 95810

== ENCOUNTER → 2022-11-01 | Outpatient (CLI) | payer MEDICARE, SELFPAY ==
--- NOTE | 2022-11-01 10:10 | RAD_ITS ---
STUDY: X-RAY - ESOPHAGUS (BARIUM SWALLOW) WITH FLUOROSCOPY REASON FOR EXAM: Male, 72 years old. ABD PAIN TECHNIQUE: 15 view(s) of the esophagus were obtained following swallowing of barium. FLUOROSCOPY TIME (if supplied): (22 seconds) minutes/seconds. 9.81 mGy COMPARISON: None. FINDINGS: There is no demonstrated esophageal foreign body. There is no demonstrated stricture or mucosal abnormality. Normal gastroesophageal junction, without a demonstrated hiatal hernia. The patient ingested a 12 mm tablet of barium without any difficulty. There is atherosclerotic calcification of the aortic arch with tortuosity of the descending aorta. Normal visualized pulmonary parenchyma. There are diffuse degenerative changes of the visualized thoracic spine. RAD/Esophagus Dual Contrast IMPRESSION: Normal plain film x-ray examination (barium swallow) of the esophagus. Electronically Signed: Hudson Garibay MD at 12:32 EST ,
== END | disposition home or self-care (01) ==
PROVIDERS: PCP Family Medicine; Referring Provider Family Medicine; Visit Provider Family Medicine
DX: R10.84 Generalized abdominal pain (principal)
CPT/HCPCS: 74221

== ENCOUNTER → 2022-11-07 | Outpatient (CLI) | payer MEDICARE, SELFPAY ==
--- NOTE | 2022-11-07 10:40 | RAD_ITS ---
STUDY: X-RAY - ACUTE ABDOMINAL SERIES REASON FOR EXAM: Male, 72 years old. Abdominal discomfort. TECHNIQUE: Single view of the chest. Supine, and erect view(s) of the abdomen were obtained on 4 images. COMPARISON: None. FINDINGS: Low volume inspiration with bibasilar atelectasis. Cardiomegaly. Normal mediastinum and sebas. Normal visualized pulmonary arteries. Aortic tortuosity with calcification. Normal bowel gas pattern with air seen to the rectum. No disproportionate dilatation of bowel. Normal soft tissues of the abdomen and pelvis. Residual barium in the upper abdomen and pelvis. Diffuse osteopenia with mild osteoarthritic changes. RAD/Acute Abdomen Inc Chest IMPRESSION: Cardiomegaly with low volume inspiration. No active or acute cardiopulmonary disease. No acute abnormality of the abdomen or pelvis. Electronically Signed: Angel Robins, at 15:45 EST ,
[2022-11-07 12:55] LABS: Absolute Lymphocyte Count 1.72 X10^3/uL (0.83-4.51); Absolute Neutrophil Count 3.9 X10^3/uL (2.0-7.7); Basophil# 0.05 X10^3/uL; Basophil% 0.8 % (0-1); Eosinophil# 0.26 X10^3/uL; Eosinophils% 3.9 % (0-5); Hemoglobin 16.7 g/dL (13.0-16.5); Lymphocyte # 1.72 X10^3/ul (0.83-4.51); Lymphocyte % 25.8 % (19-41); Mean Corp Hgb Conc 33.4 g/dL (32-36); Mean Corpuscular Hgb 32.1 pg (27.0-32.0); Mean Corpuscular Volume 96.2 fL (80-94); Mean Platelet Vol. 10.2 fl (6.2-12.0); Monocyte# 0.66 X10^3/uL; Monocyte% 9.9 % (0-10); NRBC Flagged by Analyzer 0 % (0-5); Neutrophil # 3.94 X10^3/uL (2.7-7.7); Neutrophil % 59.1 % (47-70); Platelet Count 187 K/mm3 (150-450); RBC Distribution Width CV 13.4 % (11.6-14.6); RBC Distribution Width SD 47.8 fl (35.1-43.9); White Blood Count 6.7 K/mm3 (4.4-11.0)
[2022-11-07 13:17] LABS: AST(SGOT) 26 U/L (15-37); Alanine Aminotransfer ALT/SGPT 51 U/L (16-61); Albumin, Serum 3.8 g/dL (3.2-5.0); Alkaline Phosphatase 86 U/L (45-117); Amylase 54 U/L (25-115); Anion Gap 10 (5-15); BUN 18 mg/dL (7-18); Chloride 102 mmol/L (98-107); Creatinine, Serum 0.95 mg/dL (0.70-1.30); EST Glomerular Filtration Rate 83 mL/min (>60); Est Glom Filt Rate - Afr Amer 100 mL/min (>60); Globulin 3.7 g/dL (2.2-4.2); Glucose 105 mg/dL (74-106); Lipase 143 U/L (73-393); Potassium 4.1 mmol/L (3.5-5.1); Protein, Total 7.5 g/dL (6.4-8.2); Sodium Level 137 mmol/L (136-145); Thyroid Stim Hormone (TSH) 3.24 uIU/mL (0.358-3.74)
[2022-11-08 19:45] LABS: H. Pylori Antibody (IgG) 0.14 (0.00-0.79)
== END | disposition home or self-care (01) ==
LOC: MTLAB 10:38
PROVIDERS: PCP Family Medicine; Referring Provider Family Medicine; Visit Provider Family Medicine
DX: R10.84 Generalized abdominal pain (principal); R73.01 Impaired fasting glucose; Z79.899 Other long term (current) drug therapy
CPT/HCPCS: 36415; 74022; 80053; 82150; 83690; 84443; 85025; 86677

== ENCOUNTER → 2022-11-20 | Outpatient (CLI) | payer MEDICARE, SELFPAY | END | disposition home or self-care (01) | LOC: SL 12:07 | PROVIDERS: PCP Family Medicine; Visit Provider Internal Medicine Critical Care Medicine | DX: Z00.00 Encounter for general adult medical examination without abnormal findings (principal) ==

== ENCOUNTER → 2022-11-22 | Outpatient (CLI) | payer MEDICARE, SELFPAY | END | disposition home or self-care (01) | LOC: SL 11:11 | PROVIDERS: PCP Family Medicine; Visit Provider Nurse Practitioner Acute Care | DX: Z00.00 Encounter for general adult medical examination without abnormal findings (principal) ==

== ENCOUNTER → 2022-12-17 | Outpatient (CLI) | payer MEDICARE, SELFPAY ==
--- NOTE | 2022-12-17 15:50 | RAD_ITS ---
STUDY: X-RAY - PARANASAL SINUSES REASON FOR EXAM: Male, 72 years old. Headaches. TECHNIQUE: 3 view(s) of the paranasal sinuses were obtained. COMPARISON: None. FINDINGS: Normal visualized frontal, maxillary, ethmoidal and sphenoid sinuses. Normal visualized facial bones. The soft tissue structures are unremarkable. RAD/Sinuses min 3 Views IMPRESSION: Normal x-rays of the paranasal sinuses. Electronically Signed: Collins Alfred DO at 21:30 EDT ,
== END | disposition home or self-care (01) ==
LOC: MTRAD 15:49
PROVIDERS: PCP Family Medicine; Referring Provider Family Medicine; Visit Provider Family Medicine
DX: R51.9 Headache, unspecified (principal)
CPT/HCPCS: 70220

== ENCOUNTER 2023-11-05 08:24 | Day surgery (SDC) | payer MEDICARE, SELFPAY ==
[2023-11-05] MEDS: Lactated Ringers 1,000 ML 15 ML IV (08:59)
[2023-11-05 09:00] VITALS: BP 116/85; PULSE 63; RESP 16; TEMP 36.2; O2SAT 97; BMI 30.2
--- NOTE | 2023-11-05 09:07 | PCM.HP.STD ---
[facility] - General General Date of Admission: 05/17/20 Date of Service: 11/05/23 Chief Complaint: Screening for intestinal cancer. [facility] Narrative SOPHIE ESPARZA, is a 73 M who presents for surveillance colonoscopy. Previous colonoscopy was June 2018. 2 polyps were removed at that time. Fortunately he is currently asymptomatic. He is currently enjoying good health. He denies bright red blood per rectum or melena. No abdominal pain. [facility] Medical History (Updated 11/05/23 @ 09:[address] Raymond Horvath MD) Encounter for adjustment and management of vascular access device Erythrocytosis Hearing loss Hx of colonic polyps Neck mass Non-Hodgkin lymphoma in remission Obstructive sleep apnea Right arm fracture Umbilical hernia without obstruction and without gangrene Wears glasses Home Medications multivitamin 1 ea PO DAILY 06/30/18 [History Last Taken Unknown] rosuvastatin 5 mg tablet 5 mg PO DAILY 08/27/19 [History Last Taken Unknown] bisacodyl 5 mg tablet,delayed release (Dulcolax (bisacodyl)) 20 mg (4 x 5 mg) PO ONCE #4 tabs 10/17/23 [Rx Last Taken Unknown] polyethylene glycol 3350 17 gram/dose oral powder (Miralax) See Rx Instructions PO .COMPLEX #238 grams 10/17/23 [Rx Last Taken Unknown] Allergy/AdvReac Type Severity Reaction Status Date / Time animal dander Allergy Other Verified 11/05/23 08:56 Family History Other No pertinent family history Surgical History (Updated 10/31/23 @ 10:11 by Denis Rodney) biopsy/excision, lymph nodes History of colonoscopy (~2016) History of inguinal hernia repair (~10/2019) History of removal of Port-a-Cath (~2019) History of tonsillectomy History of umbilical hernia repair (~10/2019) port placement S/P surgery on nasal septum Social History household members: spouse Smoking Status: Former smoker second hand exposure: No alcohol intake: never substance use type: does not use what type of physical activity do you participate in: none seatbelt use: sometimes do you feel safe at home: Yes ROS Constitutional Constitutional: Reports systems reviewed and no addt'l complaints, except as documented Cardiovascular Cardiovascular: Denies chest pain Respiratory/Chest Respiratory/Chest: Denies shortness of breath at rest Gastrointestinal Gastrointestinal: Denies abdominal pain, change in bowel habits, hematochezia or melena Vital Signs Vital Signs Vital Signs: 11/05/23 09:00 11/05/23 09:00 Temperature 97.1 F L Temperature Source Temporal Pulse Rate 63 Respiratory Rate 16 Respiratory Pattern Normal Blood Pressure 116/85 H Blood Pressure Mean 95 Blood Pressure Source Monitor Blood Pressure Position Semi-Fowlers Blood Pressure Location Left Arm Pulse Ox 97 Oxygen Delivery Method Room Air Weight Weight: 210 lb 5.136 oz Body Mass Index (BMI) 30.2 Physical Exam Const alert, oriented x3 and no apparent distress General Appearance: cooperative and comfortable Eyes General Eye: normal appearance of both eyes Neck General: normal visual inspection Chest inspection of chest normal Resp Effort and Inspection: able to speak in complete sentences and symmetric chest movement Auscultation: clear to auscultation bilaterally Cardio regular rate and regular rhythm GI soft to palpation, non-tender and non-distended Extremity no calf tenderness Neuro oriented x3 Psych thought process normal Assessment & Plan Assessment/Plan (1) Hx of colonic polyps: PLAN: The patient presents today via open access for a colonoscopy with possible biopsy or polypectomy as indicated. He is aware of technique, benefit, risk, alternatives. He has had an opportunity to ask and have questions answered. We will proceed as noted. Raymond Horvath M.D., F.A.C.S.
--- NOTE | 2023-11-05 09:30 | COLBX_PTH ---
PATHOLOGY RESULTS PATIENT: SOPHIE ESPARZA LOC: EN U#:[id number] AGE/SX: 73/M ROOM: RE11/05/[address]: Dr. Raymond Horvath MD : 1950 BED: DIS: 11/05/2023 SPEC #: [id number] RECD: 11/05/23 13:08 STATUS: IAN CARLSON #: [id number] JOSÉ MIGUEL: 11/05/23 09:[address]: Raymond Horvath DEPT: SURGICAL PATHOLOGY RECD BY: Susan Michaels ENTERED: 11/05/23 13:10 SP TYPE: COLON BX OTHR DR: Dr. Danie Rivera MD Tissues: Ascending colon COLON BIOPSY Sigmoid colon biopsy Rectum, NOS Procedures: Surgery Specimen Level IV HEADER OPERATION: Colonoscopy - open access, polypectomy PRE-OP DIAGNOSIS: History of colonic polyps TISSUE SUBMITTED: A - Mid ascending 5 mm polyp, B - Polyp biopsy, C - Proximal sigmoid polyp biopsy, D - Rectal polyps biopsy (x2) MICROSCOPIC DIAGNOSIS A. Mid ascending colon polyp, polypectomy: Fragments of tubular adenoma. B. Proximal sigmoid polyp, biopsy: Hyperplastic polyp. C. Proximal sigmoid polyp #2, biopsy: Hyperplastic polyp. D. Rectal polyp, biopsy: Hyperplastic polyp. HERBERTH:don 11/06/2023 MICROSCOPIC DESCRIPTION Slides are reviewed. GROSS DESCRIPTION A - Received in fixative is one container labeled with the patient's name and designated mid ascending polyp. The specimen consists of multiple irregular fragments of light flores soft tissue that in aggregate measure 0.6 x 0.2 x 0.1 cm. The specimen is totally submitted in one cassette. B - Received in fixative is one container labeled with the patient's name and designated proximal sigmoid polyp biopsy. The specimen consists of two irregular fragments of light flores soft tissue that in aggregate measure 0.6 x 0.3 x 0.1 cm. The specimen is totally submitted in one cassette. C - Received in fixative is one container labeled with the patient's name and designated proximal sigmoid polyp #2 biopsy. The specimen consists of two irregular fragments of light flores soft tissue that in aggregate measure 0.6 x 0.3 x 0.1 cm. The specimen is totally submitted in one cassette. D - Received in fixative is one container labeled with the patient's name and designated rectal polyps biopsy. The specimen consists of two irregular fragments of light flores soft tissue that in aggregate measure 0.6 x 0.3 x 0.1 cm. The specimen is totally submitted in one cassette. / HERBERTH:don 11/05/2023 TC:1 CPT: 03709 x4
[2023-11-05 09:45] VITALS: BP 100/74; BP 116/85; PULSE 66; RESP 16; TEMP 36.5; O2SAT 92
--- NOTE | 2023-11-05 09:46 | OP.COLON_ITS ---
Patient Name: Marleen Roman Procedure Date: 11/05/2023 9:09 AM Date of : 1950 Age: 73 Procedure: Colonoscopy Indications: High risk colon cancer surveillance: Personal history of colonic polyps Providers: Raymond Horvath MD Referring MD: Huy Rivera Patient Profile: Last Colonoscopy: June 2018. Complications: No immediate complications. Procedure: Pre-Anesthesia Assessment: - Prior to the procedure, a History and Physical was performed, and patient medications and allergies were reviewed. The patient's tolerance of previous anesthesia was also reviewed. The risks and benefits of the procedure and the sedation options and risks were discussed with the patient. All questions were answered, and informed consent was obtained. Prior Anticoagulants: The patient has taken no anticoagulant or antiplatelet agents. ASA Grade Assessment: II - A patient with mild systemic disease. After reviewing the risks and benefits, the patient was deemed in satisfactory condition to undergo the procedure. After I obtained informed consent, the scope was passed under direct vision. Throughout the procedure, the patient's blood pressure, pulse, and oxygen saturations were monitored continuously. The Colonoscope was introduced through the anus and advanced to the cecum, identified by appendiceal orifice and ileocecal valve. The colonoscopy was performed without difficulty. The patient tolerated the procedure well. The quality of the bowel preparation was good. The ileocecal valve and the appendiceal orifice were photographed. Scope In: 9:16:02 AM Scope Withdrawal Time 0 hours 14 minutes 7 seconds Scope Out: 9:38:54 AM Total Procedure Duration Time 0 hours 22 minutes 52 seconds Findings: The digital rectal exam findings include non-thrombosed internal hemorrhoids and internal hemorrhoids that prolapse with straining, but spontaneously regress to the resting position (Grade II). Pertinent negatives include normal prostate (size, shape, and consistency). A 5 mm polyp was found in the mid ascending colon. The polyp was sessile. The polyp was removed with a cold snare. Resection and retrieval were complete. Two sessile polyps were found in the proximal sigmoid colon. The polyps were 2 to 3 mm in size. These polyps were removed with a cold biopsy forceps. Resection and retrieval were complete. Two sessile polyps were found in the rectum. The polyps were 2 to 3 mm in size. These polyps were removed with a cold biopsy forceps. Resection and retrieval were complete. Scattered diverticula were found in the sigmoid colon. Impression: - Non-thrombosed internal hemorrhoids and internal hemorrhoids that prolapse with straining, but spontaneously regress to the resting position (Grade II) found on digital rectal exam. - One 5 mm polyp in the mid ascending colon, removed with a cold snare. Resected and retrieved. - Two 2 to 3 mm polyps in the proximal sigmoid colon, removed with a cold biopsy forceps. Resected and retrieved. - Two 2 to 3 mm polyps in the rectum, removed with a cold biopsy forceps. Resected and retrieved. - Diverticulosis in the sigmoid colon. Recommendation: - Discharge patient to home. - Resume previous diet. - Continue present medications. - Repeat colonoscopy in 5 years for surveillance based on pathology results. - Telephone my office for pathology results in 1 week. Procedure Code(s): --- Professional --- 82888, Colonoscopy, flexible; with removal of tumor(s), polyp(s), or other lesion(s) by snare technique 03989, 59, Colonoscopy, flexible; with biopsy, single or multiple Diagnosis Code(s): --- Professional --- Z86.010, Personal history of colonic polyps K64.1, Second degree hemorrhoids D12.2, Benign neoplasm of ascending colon D12.5, Benign neoplasm of sigmoid colon D12.8, Benign neoplasm of rectum K57.30, Diverticulosis of large intestine without perforation or abscess without bleeding CPT copyright 2021 [employer]. All rights reserved. The codes documented in this report are preliminary and upon machinery mover review may be revised to meet current compliance requirements. Raymond Horvath MD 11/05/2023 9:45:28 AM This report has been signed electronically. Number of Addenda: 0 Note Initiated On: 11/05/2023 9:09 AM
--- NOTE | 2023-11-05 09:46 | OP.CCLET_ITS ---
11/05/2023 Huy Rivera [address] [place] [address] Re : Colonoscopy procedure for Marleen Roman Dear Dr. Rivera This procedure was performed on Sunday, November 05, 2023. My impressions and recommendations are as follows: Impressions : - Non-thrombosed internal hemorrhoids and internal hemorrhoids that prolapse with straining, but spontaneously regress to the resting position (Grade II) found on digital rectal exam. - One 5 mm polyp in the mid ascending colon, removed with a cold snare. Resected and retrieved. - Two 2 to 3 mm polyps in the proximal sigmoid colon, removed with a cold biopsy forceps. Resected and retrieved. - Two 2 to 3 mm polyps in the rectum, removed with a cold biopsy forceps. Resected and retrieved. - Diverticulosis in the sigmoid colon. Recommendations : - Discharge patient to home. - Resume previous diet. - Continue present medications. - Repeat colonoscopy in 5 years for surveillance based on pathology results. - Telephone my office for pathology results in 1 week. My findings are described in the full procedure note, which is enclosed. If I can be of further assistance, please feel free to contact me at Doctor phone number(s): Work: . Sincerely, Raymond Horvath MD 11/05/2023 9:45:28 AM This report has been signed electronically.
[2023-11-05 09:50] VITALS: BP 104/62; BP 116/85; PULSE 62; RESP 16; O2SAT 92
[2023-11-05 09:55] VITALS: BP 102/78; BP 116/85; PULSE 59; RESP 16; O2SAT 92
[2023-11-05 10:00] VITALS: BP 114/59; BP 116/85; PULSE 62; RESP 16; TEMP 36.5; O2SAT 95
[2023-11-05 10:24] VITALS: BP 116/85
== END 2023-11-05 10:33 | disposition home or self-care (01) ==
LOC: EN 08:26 → AC 08:27
PROVIDERS: PCP Family Medicine; Referring Provider Family Medicine; Visit Provider Surgery
PROC: 0DJD8ZZ Inspection of Lower Intestinal Tract, Via Natural or Artificial Opening Endoscopic (ICD-10-PCS; CPT 45378; principal; 2023-11-05 09:25)
DX: Z12.11 Encounter for screening for malignant neoplasm of colon (principal); K62.1 Rectal polyp; K57.30 Diverticulosis of large intestine without perforation or abscess without bleeding; Z87.891 Personal history of nicotine dependence; Z86.010 Personal history of colon polyps; K64.1 Second degree hemorrhoids; D12.2 Benign neoplasm of ascending colon
CPT/HCPCS: 45385; 45380; 88305; J7120; J2405

== ENCOUNTER → 2024-03-19 | Outpatient (CLI) | payer MEDICARE, SELFPAY ==
--- NOTE | 2024-03-19 15:43 | RAD_ITS ---
STUDY: X-RAY - LUMBAR SPINE REASON FOR EXAM: Male, 73 years old. LOW BACK PAIN TECHNIQUE: 5 view(s) of the lumbar spine were obtained. COMPARISON: None FINDINGS: Normal lumbar lordosis. Mild levoscoliosis centered at L1/L2. There is a normal alignment of the vertebrae. There is multilevel endplate spondylosis of the lumbar vertebrae. There is multi-level degenerative disc disease with multi-level disc space narrowing. There is multilevel facet hypertrophy. The soft tissue structures are unremarkable. RAD/L/S Spine Min 4 Views IMPRESSION: Mild levoscoliosis with diffuse degenerative disc disease. MRI may be useful for Electronically Signed: Sami Barrett MD at 9:13 EDT ,
== END | disposition home or self-care (01) ==
PROVIDERS: PCP Family Medicine; Referring Provider Family Medicine; Visit Provider Family Medicine
DX: M54.50 Low back pain, unspecified (principal)
CPT/HCPCS: 72110

== ENCOUNTER → 2024-04-09 | Outpatient (CLI) | payer MEDICARE, SELFPAY ==
--- NOTE | 2024-04-09 08:12 | MRI_ITS ---
HISTORY: degenerative disc , low back pain. TECHNIQUE: Multiplanar and multisequence MR images of the lumbar spine were obtained without intravenous contrast. 143 images. COMPARISON: XR 03/19/2024. CT 07/10/2021 FINDINGS: VERTEBRAE: Vertebral body heights maintained. Mild degenerative endplate changes. No other significant bone marrow signal abnormality. ALIGNMENT: No anterior or posterior subluxation. CONUS: Normal morphology and position of the conus medullaris at T12-L1. INTERVERTEBRAL DISCS: T12-L1: No significant signal abnormality, posterior disc protrusion, central canal stenosis, or foraminal narrowing based on the sagittal images. L1-2: No significant signal abnormality, posterior disc protrusion, central canal stenosis, or foraminal narrowing. L2-3: Mild disc bulge with facet arthropathy resulting in minimal narrowing of the thecal sac and right neural foramen. L3-4: Mild disc bulge with facet arthropathy resulting in minimal narrowing of thecal sac and mild left foraminal narrowing. L4-5: Minimal disc bulge with annular fissure and moderate facet arthropathy resulting in minimal narrowing of the thecal sac and right foramen. L5-S1: Mild posterior disc bulge osteophyte complex with facet arthropathy resulting in no significant central canal stenosis and very mild bilateral foraminal narrowing. SOFT TISSUES: No paraspinal fluid collection. Mild posterior subcutaneous edema. Stable 1.7 cm left proteinaceous or hemorrhagic renal cyst. MRI/Spine Lumbar (Routine) IMPRESSION: Mild degenerative change of the lumbar spine as above. Electronically Signed: Ximena Valentine MD at 10:39 EDT ,
== END | disposition home or self-care (01) ==
PROVIDERS: PCP Family Medicine; Referring Provider Family Medicine; Visit Provider Family Medicine
DX: M51.36 Other intervertebral disc degeneration, lumbar region (principal)
CPT/HCPCS: 72148

== ENCOUNTER 2024-04-17 10:56 | Outpatient (RCR) | payer MEDICARE, SELFPAY ==
--- NOTE | 2024-04-20 10:25 | HP.PTEVAL ---
Patient's Visit Information Visit Information Visit Information: SOPHIE ESPARZA is a 74 year old M referred to Physical Therapy by Dr. Garth Palma MD with a diagnosis of Intervertebral disc degeneration of lumbar region. Date of Evaluation: 04/17/24 Physical Therapist: Nicho Steinberg DPT Visit Plan Frequency: 1x/Week Duration: 6 Weeks Plan: Start with lumbar ROM progression. Add in HS and hip flexor stretching. Subjective Subjective: Pt. is here today for his initial evaluation with diagnosis of Intervertebral disc degeneration of lumbar region. Pt. reports having increased pain for a few months now. He reports having pain at the L side of his lumbar spine. Pt. reports no pain down his legs, no LE weakness as well. He reports It feels like a pinched muscle. Pt. has been to chiro with decent short term pain relief, but his symptoms do come back. The initial injury he was seated and twisted, resulting in intense L sided low back pain, I couldn't even walk. pt. reports his symptoms are better than they were, but still cause him discomfort especially with prolonged standing. Pt. is hopeful to reduce symptoms in order to get back to all recreational and household activities without limitations. Pain L side of lumbar spine: Pain Intensity (Out of 10): 3 Pain Intensity Range: 0 and 4 Objective Objective: POSTURE: Pt. has flexed posture in stance. Marked scoliosis, but no major iliac crest height discrepancies. PALPATION: Pt. has some mild tenderness to L side of multifidus. No pain with spring testing throughout lumbar spine. Pt. does have marked hypomobility with spring testing. NEURO: normal sensation and DTR of BLEs. Pt. is able to rise on heels and toes without issues. ROM: LUMABR SPINE: flexion min loss NE, ext mod/max loss NE, SB min loss bilat NE, rotation mod loss bilat NE. Very tight HS and hip flexors. Fairly normal B hip ROM, lacking some extension. MMT: 5/5 throughout BLEs, core strength poor. GAIT: Pt. has a general flexed posture with gait, otherwise normal. STAIRS: normal no effect. Special Tests L/S Slump test left side: Negative L/S Slump test right side: Negative L/S Left Straight Leg Raise: Negative L/S Right Straight Leg Raise: Negative Lumbar Standing: Flexion - Mechanical Response: No effect Lumbar Standing: Flexion - Symptoms During Testing: No effect Lumbar Standing: Flexion - Symptoms After Testing: Better Lumbar Standing: Extension - Mechanical Response: No effect Lumbar Standing: Extension - Symptoms During Testing: No effect Lumbar Standing: Extension - Symptoms After Testing: No effect Lumbar Standing: Right Side Glides - Mechanical Response: No effect Lumbar Standing: Right Side [place] - Symptoms During Testing: Produces Lumbar Standing: Right Side [place] - Symptoms After Testing: No effect Lumbar Standing: Left Side [place] - Mechanical Response: No effect Lumbar Standing: Left Side [place] - Symptoms During Testing: No effect Lumbar Standing: Left Side [place] - Symptoms After Testing: No effect Lumbar Lying: Flexion - Mechanical Response: No effect Lumbar Lying: Flexion - Symptoms During Testing: No effect Lumbar Lying: Flexion - Symptoms After Testing: No effect Lumbar Lying: Extension - Mechanical Response: No effect Lumbar Lying: Extension - Symptoms During Testing: No effect Lumbar Lying: Extension - Symptoms After Testing: No effect Balance/Special Test Scores Oswestry Low Back Score: 16 Goals Goal 1:: LTG: Pt. to be I with HEP for LE and lumbar stretching. Goal Time Frame: 4-6 Weeks Goal 2:: LTG: Pt. to have increased lumbar and BLE ROM improved by 25% throughout. Goal Time Frame: 4-6 Weeks Goal 3:: LTG: pt. be able to stand for 1+ hours without increase in LBP. Goal Time Frame: 4-6 Weeks Rehabilitation Potential Physical Therapy Diagnosis: Pt. has signs and symptoms consistent with Intervertebral disc degeneration of lumbar region. Pt. is overall very stiff throughout his pelvic and LE musculature as well as his lumbar spine. Pt. would benefit from PT to work on his overall ROM of lumbar spine and hip/pelvic ROM. Rehabilitation Potential: Excellent Anticipated Interventions Patient/Client Instruction: Educate patient on: Condition, Plan of Care, Risk Factors and Benefits of Fitness Program For the Purpose of:: To facilitate caregiver knowledge, To improve self management, To prevent re-injury, To improve ability to perform tasks related to life management and To improve tolerance to ADL's Therapeutic Exercise to Include: Strength training, Flexibilty training, Passive ROM, Active ROM, Dynamic Lumbar Stabilization and Helio Exercises For the Purpose of:: To decrease pain, To increase ROM, To improve nutrient delivery to tissue, To increase oxygenation perfusion and To improve muscle performance and motor function Text: Thank you for the opportunity to evaluate your patient. For Medicare and Medicare HMO plans, please review the plan of care and approve it. It will need to be FAXED BACK to us at [phone] for Medicare purposes. For Medicare only, by signing this I certify the plan of care. Please let me know if there are questions or concerns regarding this plan of care. Physician Signature: Date:
== END 2024-04-17 19:00 | disposition home or self-care (01) ==
LOC: PT 10:56
PROVIDERS: PCP Family Medicine; Referring Provider Family Medicine; Visit Provider Family Medicine
DX: M51.36 Other intervertebral disc degeneration, lumbar region (principal)
CPT/HCPCS: 97161

== ENCOUNTER → 2024-11-12 | Outpatient (CLI) | payer OTHER, SELFPAY ==
[2024-11-12 12:27] LABS: Hematocrit 46.4 % (40-54); Hemoglobin 15.9 g/dL (13.0-16.5); Mean Corp Hgb Conc 34.3 g/dL (32-36); Mean Corpuscular Hgb 32.4 pg (27.0-32.0); Mean Corpuscular Volume 94.7 fL (80-94); Mean Platelet Vol. 10.1 fl (6.2-12.0); Platelet Count 201 K/mm3 (150-450); RBC Distribution Width CV 13.3 % (11.6-14.6); RBC Distribution Width SD 46.1 fl (35.1-43.9); White Blood Count 6.9 K/mm3 (4.4-11.0)
[2024-11-12 13:25] LABS: ALB/GLOB Ratio 1.6 RATIO (0.9-2.4); AST(SGOT) 29 U/L (<=37); Alanine Aminotransfer ALT/SGPT 37 U/L (<=46); Albumin, Serum 4.2 g/dL (3.4-4.8); Alkaline Phosphatase 71 U/L (40-129); Anion Gap 11 (5-15); BUN 14 mg/dL (4-19); BUN/Creat Ratio 15.9 RATIO (10-20); Calcium,Total 9.3 mg/dL (7.6-11.0); Carbon Dioxide 23.3 mmol/L (21.0-32.0); Chloride 104 mmol/L (98-108); Cholesterol 180 mg/dL (<=200); EST Glomerular Filtration Rate 89 (>60); Globulin 2.6 g/dL (2.2-4.2); Glucose 136 mg/dL (70-99); High Density Lipoprotein 39 mg/dL; Low Density Lipoprotein Calc. 116 mg/dL; PSA,Total - Annual Screen 0.49 ng/mL (0.02-4.00); Potassium 4.8 mmol/L (3.3-5.1); Protein, Total 6.8 g/dL (5.9-8.4); Sodium Level 138 mmol/L (133-145); Total Bilirubin 0.83 mg/dL (0.00-1.30); Triglycerides 127 mg/dL; Very Low Density Lipoprotein 25 mg/dL (5-40); cholesterol:hdl ratio screen 4.63
== END | disposition home or self-care (01) ==
LOC: MTLAB 10:52
PROVIDERS: PCP Family Medicine; Referring Provider Family Medicine; Visit Provider Family Medicine
DX: D58.2 Other hemoglobinopathies (principal); E78.00 Pure hypercholesterolemia, unspecified; Z12.5 Encounter for screening for malignant neoplasm of prostate
CPT/HCPCS: 36415; 80053; 80061; 82043; 82570; 84153; 85027; G0103

== ENCOUNTER 2025-04-14 08:30 | Outpatient (RCR) | payer MEDICARE, SELFPAY ==
--- NOTE | 2025-04-05 08:44 | HP.PTEVAL_ITS ---
Patient's Visit Information Visit Information Visit Information: SOPHIE ESPARZA is a 74 year old M referred to Physical Therapy by Dr. Danie Rivera MD with a diagnosis of Lumbar DDD. Date of Evaluation: 04/05/25 Physical Therapist: Daniel Quijano, DPT, OCS, CSCS Visit Plan Frequency: 3x /Week Duration: 4-6 Weeks Plan: 3x/week for 2-4 weeks IE HEP: SKC, trunk rotation, pelvic tilt, supine lie and HS stretch all 1- 2x.day. Please get right out to gym ot teach core adn postural exercises for I [employer] membership in two weeks if possible, include mat based core strength for HEP also but pt really wants gym. Will need list and pics for compliance. Subjective Subjective: I got L LB muscle keeps getting pulled. Does it getting out of recliner. Has to use both hands on arm rest. Has to protect self. Don't exercise regularly. Is in pain dull much of time but sprains it 6x in last month or so giving pain that lasts a day or two. Sleep is Ok but up at times when he strains it. Retired. 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 Hobbies: gardening and fixing things around the house. Cooking. Live with , no steps. Basic ADLS all I. Has [employer]loskers and wants to use that. Pain LB: Pain Intensity (Out of 10): 0 Pain Intensity Range: 0 and 2 Objective Objective: Hunched forward posture, flat lordosis, kyphotic T/S. Poor pelvic mobility and max tight HS at -40 90/90 test, mod tight in quads. structural kyphosis in upper thoracic. Mild tenderness soft tissue L lumbar paraspinals. Lumbar AROM ext max limited, flexion mod limited, , SB mod limtied adn L is slightly painful. LE AROM WFL in joints, hip ext tight and age appropriate limitations at 3 degrees ext B. tightness in psoas. reflexes 2/3 patella dna chilles Sensation LE WNL to gross light touch. - slump, - SLR, weakness core evident with seated hip flexion testing adn funcitonal sitting up , tested at 3+ in abs and 3 in exxtension. Balance/Special Test Scores Oswestry Low Back Score: 8 Goals Goal 1:: pt eexit chair without UE without pain or difficulty. Goal Time Frame: 4-6 Weeks Goal 2:: I appropriate gym based ex for strenth core and LE, posture Goal Time Frame: 2-4 Weeks Goal 3:: Pt feel 75% better in overall confidence adn pain levels Goal Time Frame: 2-4 Weeks Rehabilitation Potential Physical Therapy Diagnosis: degenerative changes in lumbar and stiffness, weakness contributing to recurring pain limitiing comfortable function. Rehabilitation Potential: Fair Anticipated Interventions Patient/Client Instruction: Educate patient on: Condition and Plan of Care For the Purpose of:: To decrease pain, To increase ROM, To improve nutrient delivery to tissue, To increase tolerance to activity/condition/position and To improve ability of physical actions for home/community/work/leisure Therapeutic Exercise to Include: Strength training, Flexibilty training and Active ROM For the Purpose of:: To decrease pain, To increase ROM, To improve nutrient delivery to tissue and To improve muscle performance and motor function Text: Thank you for the opportunity to evaluate your patient. For Medicare and Medicare HMO plans, please review the plan of care and approve it. It will need to be FAXED BACK to us at [phone] for Medicare purposes. For Medicare only, by signing this I certify the plan of care. Please let me know if there are questions or concerns regarding this plan of care. Physician Signature: Date:
--- NOTE | 2025-06-29 10:39 | HP.PT.NRP ---
Patient Information Patient Information: SOPHIE ESPARZA was seen in my office for initial evaluation on 04/05/25. The following Plan of Care was established for this patient: POC Established Initial Frequency: 3x /Week Initial Duration: 4-6 Weeks Anticipated Interventions Patient/Client Instruction: Educate patient on: Condition and Plan of Care For the Purpose of:: To decrease pain, To increase ROM, To improve nutrient delivery to tissue, To increase tolerance to activity/condition/position and To improve ability of physical actions for home/community/work/leisure Therapeutic Exercise to Include: Strength training, Flexibilty training and Active ROM For the Purpose of:: To decrease pain, To increase ROM, To improve nutrient delivery to tissue and To improve muscle performance and motor function Last Seen Last Seen: This patient was last seen in our office 04/14/25. Pertinent comments regarding their Physical therapy will appear below: Pt seen 4 visits of POC and worked to I with strengthening program. He was to f/u a couple weeks later but did not schedule or attend. At this point I will be discontinuing this patient from physical therapy. I would be happy to see this patient again in the future if found appropriate by the physician. Thank you! Daniel Quijano, DPT, OCS, CSCS Balance/Gait/Functional tests Balance/Special Test Scores Oswestry Low Back Score: 8
== END 2025-04-14 19:00 | disposition home or self-care (01) ==
LOC: PT 08:30
PROVIDERS: PCP Family Medicine; Referring Provider Family Medicine; Visit Provider Family Medicine
DX: M51.369 Other intervertebral disc degeneration, lumbar region without mention of lumbar back pain or lower extremity pain (principal)
CPT/HCPCS: 97110; 97161

== ENCOUNTER → 2025-06-30 | Outpatient (CLI) | payer MEDICARE, SELFPAY ==
[2025-06-30 14:39] LABS: AST(SGOT) 34 U/L (<=37); Alanine Aminotransfer ALT/SGPT 43 U/L (<=46); Albumin, Serum 4.0 g/dL (3.4-4.8); Alkaline Phosphatase 64 U/L (40-129); Anion Gap 10 (5-15); BUN 16 mg/dL (4-19); BUN/Creat Ratio 17.2 RATIO (10-20); Calcium,Total 9.3 mg/dL (7.6-11.0); Carbon Dioxide 24.0 mmol/L (21.0-32.0); Chloride 105 mmol/L (98-108); Cholesterol 166 mg/dL (<=200); Globulin 2.6 g/dL (2.2-4.2); Glucose 143 mg/dL (70-99); Low Density Lipoprotein Calc. 110 mg/dL; Potassium 4.7 mmol/L (3.3-5.1); Triglycerides 93 mg/dL; Very Low Density Lipoprotein 19 mg/dL (5-40); cholesterol:hdl ratio screen 4.35
== END | disposition home or self-care (01) ==
LOC: MFPLAB 09:04
PROVIDERS: PCP Family Medicine; Visit Provider Family Medicine
DX: R79.89 Other specified abnormal findings of blood chemistry (principal); E78.00 Pure hypercholesterolemia, unspecified
CPT/HCPCS: 36415; 80053; 80061